=== PATIENT | female | born 1950 | race Caucasian/White ===

== ENCOUNTER → 2017-01-27 | Outpatient (CLI) | payer BC, MEDICARE ==
--- NOTE | 2017-01-28 08:26 | MM ---
Reason for exam: screening (asymptomatic). Last mammogram was performed 10 years and 5 months ago. History: Patient is postmenopausal and is nulliparous. Taking estrogen for 3 years 2 months. Taking progesterone for 3 years 2 months. Physical Findings: A clinical breast exam by your physician is recommended on an annual basis and results should be correlated with mammographic findings. MG Screening Mammo w CAD Bilateral CC and MLO view(s) were taken. Prior study comparison: August 22, 2006, workup left diagnostic mammogram. August 15, 2006, bilateral screening mammogram w/CAD. There are scattered fibroglandular densities. Asymmetric breast tissue in the left breast x 2. ASSESSMENT: Incomplete: need additional imaging evaluation, BI-RAD 0 RECOMMENDATION: Special view mammogram of the left breast. If lesion persists on supplemental views, image directed ultrasound is recommended. [facility] will attempt to contact patient to return for supplemental views and ultrasound if indicated.
== END | disposition home or self-care (01) ==
LOC: RADMAMWWP 09:18
PROVIDERS: ATTEND Obstetrics & Gynecology
DX: Z12.31 Encounter for screening mammogram for malignant neoplasm of breast (principal); R92.2 Inconclusive mammogram

== ENCOUNTER → 2017-02-05 | Outpatient (CLI) | payer BC, MEDICARE ==
--- NOTE | 2017-02-06 08:10 | MM ---
Reason for exam: additional evaluation requested from abnormal screening. Last mammogram was performed less than 1 month ago. History: Patient is postmenopausal, has history of endometrial cancer at age 57, and is nulliparous. Taking estrogen for 3 years 2 months. Taking progesterone for 3 years 2 months. Physical Findings: Nurse did not find any significant physical abnormalities on exam. MG 3D Work Up W/Cad LT Spot compression CC, spot compression MLO, and ML view(s) were taken of the left breast. Prior study comparison: January 27, 2017, bilateral MG screening mammo w CAD. August 22, 2006, workup left diagnostic mammogram. There are scattered fibroglandular densities. Previous mammotome biopsy in the left breast. There is no discrete abnormality. No significant new findings when compared with previous films. These results were verbally communicated with the patient and result sheet given to the patient on 02/05/17. ASSESSMENT: Benign, BI-RAD 2 RECOMMENDATION: Return to routine screening mammogram schedule for both breasts.
== END | disposition home or self-care (01) ==
LOC: RADMAMWWP 14:42
PROVIDERS: ATTEND Obstetrics & Gynecology
DX: R92.8 Other abnormal and inconclusive findings on diagnostic imaging of breast (principal)
CPT/HCPCS: G0206; G0279

== ENCOUNTER 2019-09-29 11:47 | Inpatient (IN) | payer MEDICARE, BC ==
[2019-09-29] MEDS ORDERED: SODIUM CHLORIDE 0.9% 1,000 ML IV STA (12:28)
[2019-09-29] MEDS ORDERED: KETOROLAC 30 MG/ML 1 ML VIAL IVP STA (12:28)
[2019-09-29] MEDS ORDERED: PANTOPRAZOLE 40 MG/10 ML VIAL IVP STA (12:28)
[2019-09-29] MEDS ORDERED: ONDANSETRON 4 MG/2 ML VIAL IVP STA (12:28)
[2019-09-29] MEDS ORDERED: SODIUM CHLORIDE 0.9% 2,000 ML IV STA (12:28)
--- NOTE | 2019-09-29 12:32 | ED ---
Abdominal Pain HPI - General Chief Complaint: Abdominal Pain Stated Complaint: abd pain, vomiting Time Seen by Provider: 09/29/19 12:13 Source: patient, RN notes reviewed, old records reviewed Mode of arrival: wheelchair Limitations: physical limitation - History of Present Illness Initial Comments: Patient is a 69-year-old female who presents emergency Department today with complaints of abdominal pain nausea and vomiting for the past 3-4 days. She's been feeling generally weak. She has history of CVA, loss of partial left-sided eye sight and left-sided weakness due to the CVA in July. Patient reports that she returned home due to feeling weak and having this abdominal pain and vomiting from her trip to [place]. She returned home last night. Patient states that she has had abdominal pain with eating for the past few weeks. She states that she's had a low-grade fever last week as well as had a headache last week. She denies any acute neurological deficits or tingling sensation in her arms or legs. She does have some chronic left-sided paresthesias. - Related Data Allergies Allergy/AdvReac Type Severity Reaction Status Date / Time No Known Allergies Allergy Verified 09/29/19 12:07 Review of Systems ROS Statement: Those systems with pertinent positive or pertinent negative responses have been documented in the HPI. ROS Other: All systems not noted in ROS Statement are negative. Past Medical History Past Medical History: Cancer, CVA/TIA, Hyperlipidemia, Hypertension Additional Past Medical History / Comment(s): hearing loss History of Any Multi-Drug Resistant Organisms: None Reported Past Surgical History: Ear Surgery, Hysterectomy Past Psychological History: No Psychological Hx Reported Smoking Status: Never smoker Past Alcohol Use History: None Reported Past Drug Use History: None Reported General Exam - General Exam Comments Initial Comments: Patient is a 69-year-old female. Alert and oriented 3. Patient appears in no significant distress. Limitations: physical limitation General appearance: alert, in no apparent distress Head exam: Present: atraumatic, normocephalic, normal inspection Eye exam: Present: normal appearance, PERRL, EOMI, other (Patient has left-sided visual loss from history of CVA.). Absent: scleral icterus, conjunctival injection, periorbital swelling ENT exam: Present: normal exam, mucous membranes moist Neck exam: Present: normal inspection Respiratory exam: Present: normal lung sounds bilaterally. Absent: respiratory distress, wheezes, rales, rhonchi, stridor Cardiovascular Exam: Present: regular rate, normal rhythm, normal heart sounds. Absent: systolic murmur, diastolic murmur, rubs, gallop, clicks GI/Abdominal exam: Present: soft, tenderness (Minimal epigastric tenderness.), normal bowel sounds. Absent: distended, guarding, rebound, rigid Extremities exam: Present: normal inspection, full ROM, normal capillary refill. Absent: tenderness, pedal edema, joint swelling, calf tenderness Back exam: Present: normal inspection Neurological exam: Present: alert, oriented X3, CN II-XII intact Psychiatric exam: Present: normal affect, normal mood Skin exam: Present: warm, dry, intact, normal color. Absent: rash Course Vital Signs 09/29/19 09/29/19 12:01 13:36 Temperature 97.7 F Pulse Rate 89 78 Respiratory 18 18 Rate Blood Pressure 97/58 108/67 O2 Sat by Pulse 96 96 Oximetry Medical Decision Making - Medical Decision Making 69-year-old female presented today for evaluation for nausea vomiting abdominal pain. She does have a history of CVAs in the past resulting in left-sided visu al loss. She is also hard of hearing. Patient's did pull me aside and states that she typically minimizes her symptoms and avoids going to the [facility]. Patient was given IV fluids and labs obtained. She does have evidence of transaminitis. CT abdomen and pelvis was completed. CT shows evidence of acute cholecystitis with gallbladder hydrops. Patient was started on IV Zosyn. Blood cultures were completed. Discussed the case with Dr. Jay Mcdermott discussed the case with Dr. Correia. - Lab Data Result diagrams: 09/29/19 12:47 09/29/19 12:47 Lab Results 09/29/19 09/29/19 09/29/19 Range/Units 12:47 12:47 12:47 WBC 10.1 (3.8-10.6) k/uL RBC 3.97 (3.80-5.40) m/uL Hgb 12.5 (11.4-16.0) gm/dL Hct 36.4 (34.0-46.0) % MCV 91.5 (80.0-100.0) fL MCH 31.4 (25.0-35.0) pg MCHC 34.3 (31.0-37.0) g/dL RDW 11.4 L (11.5-15.5) % Plt Count 316 (150-450) k/uL Neutrophils % 81 % Lymphocytes % 8 % Monocytes % 6 % Eosinophils % 3 % Basophils % 0 % Neutrophils # 8.2 H (1.3-7.7) k/uL Lymphocytes # 0.8 L (1.0-4.8) k/uL Monocytes # 0.6 (0-1.0) k/uL Eosinophils # 0.3 (0-0.7) k/uL Basophils # 0.0 (0-0.2) k/uL PT (9.0-12.0) sec INR (<1.2) APTT (22.0-30.0) sec Sodium 136 L (137-145) mmol/L Potassium 4.1 (3.5-5.1) mmol/L Chloride 100 (98-107) mmol/L Carbon Dioxide 27 (22-30) mmol/L Anion Gap 9 mmol/L BUN 24 H (7-17) mg/dL Creatinine 0.66 (0.52-1.04) mg/dL Est GFR (CKD-EPI)AfAm >90 (>60 ml/min/1.73 sqM) Est GFR (CKD-EPI)NonAf 90 (>60 ml/min/1.73 sqM) Glucose 108 H (74-99) mg/dL Plasma Lactic Acid Randy 0.8 (0.7-2.0) mmol/L Calcium 8.9 (8.4-10.2) mg/dL Total Bilirubin 0.8 (0.2-1.3) mg/dL AST 348 H (14-36) U/L ALT 333 H (4-34) U/L Alkaline Phosphatase 124 (38-126) U/L Troponin I (0.000-0.034) ng/mL Total Protein 5.7 L (6.3-8.2) g/dL Albumin 3.3 L (3.5-5.0) g/dL Amylase <30 L (30-110) U/L Lipase 120 (23-300) U/L Urine Color Urine Appearance (Clear) Urine pH (5.0-8.0) Ur Specific [place] (1.001-1.035) Urine Protein (Negative) Urine Glucose (UA) (Negative) Urine Ketones (Negative) Urine Blood (Negative) Urine Nitrite (Negative) Urine Bilirubin (Negative) Urine Urobilinogen (<2.0) mg/dL Ur Leukocyte Esterase (Negative) Urine RBC (0-5) /hpf Urine WBC (0-5) /hpf Ur Squamous Epith Cells (0-4) /hpf Hyaline Casts (0-2) /lpf Urine Mucus (None) /hpf Influenza Type A RNA (Not Detectd) Influenza Type B (PCR) (Not Detectd) 09/29/19 09/29/19 09/29/19 Range/Units 12:47 12:47 13:00 WBC (3.8-10.6) k/uL RBC (3.80-5.40) m/uL Hgb (11.4-16.0) gm/dL Hct (34.0-46.0) % MCV (80.0-100.0) fL MCH (25.0-35.0) pg MCHC (31.0-37.0) g/dL RDW (11.5-15.5) % Plt Count (150-450) k/uL Neutrophils % % Lymphocytes % % Monocytes % % Eosinophils % % Basophils % % Neutrophils # (1.3-7.7) k/uL Lymphocytes # (1.0-4.8) k/uL Monocytes # (0-1.0) k/uL Eosinophils # (0-0.7) k/uL Basophils # (0-0.2) k/uL PT 9.5 (9.0-12.0) sec INR 0.9 (<1.2) APTT 22.5 (22.0-30.0) sec Sodium (137-145) mmol/L Potassium (3.5-5.1) mmol/L Chloride (98-107) mmol/L Carbon Dioxide (22-30) mmol/L Anion Gap mmol/L BUN (7-17) mg/dL Creatinine (0.52-1.04) mg/dL Est GFR (CKD-EPI)AfAm (>60 ml/min/1.73 sqM) Est GFR (CKD-EPI)NonAf (>60 ml/min/1.73 sqM) Glucose (74-99) mg/dL Plasma Lactic Acid Randy (0.7-2.0) mmol/L Calcium (8.4-10.2) mg/dL Total Bilirubin (0.2-1.3) mg/dL AST (14-36) U/L ALT (4-34) U/L Alkaline Phosphatase (38-126) U/L Troponin I <0.012 (0.000-0.034) ng/mL Total Protein (6.3-8.2) g/dL Albumin (3.5-5.0) g/dL Amylase (30-110) U/L Lipase (23-300) U/L Urine Color Urine Appearance (Clear) Urine pH (5.0-8.0) Ur Specific [place] (1.001-1.035) Urine Protein (Negative) Urine Glucose (UA) (Negative) Urine Ketones (Negative) Urine Blood (Negative) Urine Nitrite (Negative) Urine Bilirubin (Negative) Urine Urobilinogen (<2.0) mg/dL Ur Leukocyte Esterase (Negative) Urine RBC (0-5) /hpf Urine WBC (0-5) /hpf Ur Squamous Epith Cells (0-4) /hpf Hyaline Casts (0-2) /lpf Urine Mucus (None) /hpf Influenza Type A RNA Not Detected (Not Detectd) Influenza Type B (PCR) Not Detected (Not Detectd) 09/29/19 Range/Units 13:15 WBC (3.8-10.6) k/uL RBC (3.80-5.40) m/uL Hgb (11.4-16.0) gm/dL Hct (34.0-46.0) % MCV (80.0-100.0) fL MCH (25.0-35.0) pg MCHC (31.0-37.0) g/dL RDW (11.5-15.5) % Plt Count (150-450) k/uL Neutrophils % % Lymphocytes % % Monocytes % % Eosinophils % % Basophils % % Neutrophils # (1.3-7.7) k/uL Lymphocytes # (1.0-4.8) k/uL Monocytes # (0-1.0) k/uL Eosinophils # (0-0.7) k/uL Basophils # (0-0.2) k/uL PT (9.0-12.0) sec INR (<1.2) APTT (22.0-30.0) sec Sodium (137-145) mmol/L Potassium (3.5-5.1) mmol/L Chloride (98-107) mmol/L Carbon Dioxide (22-30) mmol/L Anion Gap mmol/L BUN (7-17) mg/dL Creatinine (0.52-1.04) mg/dL Est GFR (CKD-EPI)AfAm (>60 ml/min/1.73 sqM) Est GFR (CKD-EPI)NonAf (>60 ml/min/1.73 sqM) Glucose (74-99) mg/dL Plasma Lactic Acid Randy (0.7-2.0) mmol/L Calcium (8.4-10.2) mg/dL Total Bilirubin (0.2-1.3) mg/dL AST (14-36) U/L ALT (4-34) U/L Alkaline Phosphatase (38-126) U/L Troponin I (0.000-0.034) ng/mL Total Protein (6.3-8.2) g/dL Albumin (3.5-5.0) g/dL Amylase (30-110) U/L Lipase (23-300) U/L Urine Color Alissa Urine Appearance Slightly Cloudy H (Clear) Urine pH 6.0 (5.0-8.0) Ur Specific [place] 1.020 (1.001-1.035) Urine Protein 1+ H (Negative) Urine Glucose (UA) Negative (Negative) Urine Ketones Negative (Negative) Urine Blood Negative (Negative) Urine Nitrite Negative (Negative) Urine Bilirubin Negative (Negative) Urine Urobilinogen 4.0 (<2.0) mg/dL Ur Leukocyte Esterase Negative (Negative) Urine RBC 3 (0-5) /hpf Urine WBC 2 (0-5) /hpf Ur Squamous Epith Cells <1 (0-4) /hpf Hyaline Casts 4 H (0-2) /lpf Urine Mucus Many H (None) /hpf Influenza Type A RNA (Not Detectd) Influenza Type B (PCR) (Not Detectd) 09/29/19 14:20 EKG shows normal sinus rhythm and normal EKG. Ventricular rate of 70 beats were minute. A 42 ms. Frustration is 80 ms. QT QTc is 360/410 ms. - Radiology Data Radiology results: report reviewed CT findings compatible with acute cholecystitis. Moderate surrounding inflammation marked gallbladder hydrops. Associated mild perihepatitis. Some secondary reactive edema to the right mesenteric fat. 4 mm nonobstructive right lower pole renal calculus. Sigmoid diverticulosis without diverticulitis. Disposition Clinical Impression: Acute cholecystitis, Nausea & vomiting, History of CVA (cerebrovascular accident) Disposition: ADMITTED IP TO THIS HOSP Condition: Good Is patient prescribed a controlled substance at d/c from ED?: No Referrals: Ej Joy MD [Primary Care Provider] - 1-2 days Time of Disposition: 15:22
--- NOTE | 2019-09-29 13:11 | XR ---
EXAMINATION TYPE: XR chest 2V DATE OF EXAM: 09/29/2019 COMPARISON: 10/24/2009 HISTORY: 69-year-old female with abdominal pain TECHNIQUE: PA and lateral views FINDINGS: The cardiomediastinal silhouette, aorta, and pulmonary vasculature are within normal limits. Lungs an d pleural spaces are clear. Loop recorder device projects over the left heart margin. IMPRESSION: No acute cardiopulmonary process.
[2019-09-29 13:12] LABS: Basophils % (A) 0 %; Eosinophils # (A) 0.3 k/uL (0-0.7); Eosinophils % (A) 3 %; HCT 36.4 % (34.0-46.0); HGB 12.5 gm/dL (11.4-16.0); Lymphocytes # (A) 0.8 k/uL (1.0-4.8); Lymphocytes % (A) 8 %; MCH 31.4 pg (25.0-35.0); MCHC 34.3 g/dL (31.0-37.0); MCV 91.5 fL (80.0-100.0); Monocytes # (A) 0.6 k/uL (0-1.0); Monocytes % (A) 6 %; Neutrophils # (A) 8.2 k/uL (1.3-7.7); Neutrophils % (A) 81 %; Platelet Count 316 k/uL (150-450); RBC 3.97 m/uL (3.80-5.40); RDW 11.4 % (11.5-15.5); WBC 10.1 k/uL (3.8-10.6)
--- NOTE | 2019-09-29 13:13 | XR ---
EXAMINATION TYPE: XR KUB DATE OF EXAM: 09/29/2019 CLINICAL DATA: 69 year-old female with abdominal pain, nausea/vomiting, PHH COMPARISON: 10/16/2009 FINDINGS: Dextro convex scoliosis of the lumbar spine. No evidence for free intraperitoneal air. No dilated small bowel or air-fluid levels. Scattered air within the colon with mild. No suspicious calcifications seen. IMPRESSION: Mild stool. No evidence for free air or bowel obstruction.
[2019-09-29 13:17] LABS: INR 0.9 (<1.2); Partial Thromboplastin Time 22.5 sec (22.0-30.0); Prothrombin Time 9.5 sec (9.0-12.0)
[2019-09-29 13:26] LABS: ALT 333 U/L (4-34); AST 348 U/L (14-36); African American GFR (CKD) >90 (>60 ml/min/1.73 sqM); Albumin 3.3 g/dL (3.5-5.0); Alkaline Phosphatase 124 U/L (38-126); Amylase <30 U/L (30-110); Anion Gap 9 mmol/L; Blood Urea Nitrogen 24 mg/dL (7-17); Calcium 8.9 mg/dL (8.4-10.2); Carbon Dioxide 27 mmol/L (22-30); Chloride 100 mmol/L (98-107); Glucose 108 mg/dL (74-99); Non-African American GFR(CKD) 90 (>60 ml/min/1.73 sqM); Sodium 136 mmol/L (137-145); Total Bilirubin 0.8 mg/dL (0.2-1.3); Total Protein 5.7 g/dL (6.3-8.2)
[2019-09-29 13:27] LABS: Potassium 4.1 mmol/L (3.5-5.1)
[2019-09-29 14:01] LABS: Hyaline Casts,Urine 4 /lpf (0-2); Mucus,Urine Many /hpf; RBC,Urine 3 /hpf (0-5); Squamous Epithelial Cell,Urine <1 /hpf (0-4); WBC,Urine 2 /hpf (0-5)
[2019-09-29 14:03] LABS: Appearance,Urine Slightly Cloudy (Clear); Color,Urine Amber; Glucose,Urine (UA) Negative (Negative); Protein,Urine 1+ (Negative)
[2019-09-29 14:04] LABS: Bilirubin,Urine Negative (Negative); Blood,Urine Negative (Negative); Ketones,Urine Negative (Negative); Leukocyte Esterase,Urine Negative (Negative); Nitrite,Urine Negative (Negative)
--- NOTE | 2019-09-29 14:56 | CT ---
EXAMINATION TYPE: CT abdomen pelvis w con DATE OF EXAM: 09/29/2019 COMPARISON: 10/24/2009 HISTORY: 69-year-old female generalized pain, nausea, vomiting TECHNIQUE: Contiguous axial scanning of the abdomen and pelvis following administration of 100 ml Iso tim 300 IV contrast. Delayed images through the kidneys and coronal/sagittal reconstructions perform ed. CT DLP: 792 mGycm Automated exposure control for dose reduction was used. FINDINGS: LUNG BASES: Prominent dependent atelectasis. Heart upper limits of normal in size with trace anterior pericardial fluid. LIVER/GB: No focal lesion of the liver. Portal venous system is patent. No biliary ductal dilatation. Some mild hyperemia along the gallbladder fossa. Abnormal gallbladder hydrops measuring up to 5.2 cm wide with moderate to severe edematous wall thickening and surrounding inflammatory fat stranding an d edema. PANCREAS: No significant abnormality is seen. SPLEEN: No significant abnormality is seen. ADRENALS: No significant abnormality is seen. KIDNEYS: Nonobstructive 4 mm right lower pole renal calculus. Otherwise, no significant abnormality i s seen. LYMPH NODES: Scattered nonenlarged mesenteric lymph nodes throughout. No retroperitoneal lymphadenopa thy. REPRODUCTIVE ORGANS: Bladder is collapsed. Uterus surgically absent. Neither ovary is visualized. No abnormal fluid collection the pelvis or pelvic lymphadenopathy. BOWEL: No dilated small bowel. Mild edematous change throughout the right abdominal mesentery. No fr ee air. Sigmoid diverticulosis with mild stool burden. No pericolonic inflammatory change. BONES: Degenerative changes at the hips. Facet arthropathy lower lumbar spine. IMPRESSION: 1. CT FINDINGS COMPATIBLE WITH ACUTE CHOLECYSTITIS. MODERATE SURROUNDING INFLAMMATION AND MARKED GALL BLADDER HYDROPS. ASSOCIATED MILD PERIHEPATITIS. 2. SOME SECONDARY REACTIVE EDEMA THROUGHOUT THE RIGHT ABDOMINAL MESENTERIC FAT. NO ABSCESS FORMATION. 3. 4 MM NONOBSTRUCTIVE RIGHT LOWER POLE RENAL CALCULUS. 4. SIGMOID DIVERTICULOSIS WITHOUT ACUTE DIVERTICULITIS.
[2019-09-29] MEDS ORDERED: PIPERACILLIN-TAZOBACTAM 3.375 GM in SODIUM CHLORIDE 0.9% 100 ML IVPB STA (15:02)
[2019-09-29] MEDS ORDERED: NALOXONE 0.4 MG/ML 1 ML VIAL IV PRN ×2 (15:19→15:22)
[2019-09-29] MEDS ORDERED: ACETAMINOPHEN TAB 325 MG TAB PO PRN (15:19)
[2019-09-29] MEDS ORDERED: ONDANSETRON 4 MG/2 ML VIAL IVP PRN (15:22)
[2019-09-29] MEDS ORDERED: KETOROLAC 30 MG/ML 1 ML VIAL IVP PRN (15:22)
[2019-09-29] MEDS ORDERED: SODIUM CHLORIDE 0.9% 1,000 ML IV SCH (15:30)
[2019-09-29] MEDS: SODIUM CHLORIDE 0.9% 1,000 ML IV SCH (15:58)
--- NOTE | 2019-09-29 17:56 | P.CONS ---
History of Present Illness - History of Present Illness 69-year-old pleasant female came in to ER with complaint of abdominal pain na usea vomiting has been going on for last 3-4 days the symptoms resolved today. Patient although seems to downplay her symptoms has been was present at the bedside and patient apparently was having severe abdominal pain she points to lower abdominal quadrants. Patient has been throwing up and from her trip to [place] and she was still throwing up yesterday and was having severe abdominal pain patient's family and patient came to [place] yesterday. Patient had a CAT scan of the abdomen initially EKG showing enlarged gallbladder with gallbladder wall thickening and probable hydrops of the gallbladder. Patient denied any fevers patient has on and off diarrhea which is not uncommon for her at this time she doesn't have the diarrhea denies any dysuria fever chills. Patient is not sure whether she had fever during her trip to [place]. Review of Systems REVIEW OF SYSTEMS: CONSTITUTIONAL: No fever, no malaise, no fatigue. HEENT: No recent visual problems or hearing problems. Denied any sore throat. CARDIOVASCULAR: No chest pain, orthopnea, PND, no palpitations, no syncope. PULMONARY: No shortness of breath, no cough, no hemoptysis. GASTROINTESTINAL: As mentioned in HPI NEUROLOGICAL: No headaches, no weakness, no numbness. HEMATOLOGICAL: Denies any bleeding or petechiae. GENITOURINARY: Denies any burning micturition, frequency, or urgency. MUSCULOSKELETAL/RHEUMATOLOGICAL: Denies any joint pain, swelling, or any muscle pain. ENDOCRINE: Denies any polyuria or polydipsia. The rest of the 14-point review of systems is negative. Past Medical History Past Medical History: Cancer, CVA/TIA, Hyperlipidemia, Hypertension Additional Past Medical History / Comment(s): hearing loss History of Any Multi-Drug Resistant Organisms: None Reported Past Surgical History: Ear Surgery, Hysterectomy Past Psychological History: No Psychological Hx Reported Smoking Status: Never smoker Past Alcohol Use History: None Reported Past Drug Use History: None Reported Medications and Allergies Home Medications Medication Instructions Recorded Confirmed Type Aspirin EC [Ecotrin] 325 mg PO DAILY 09/29/19 09/29/19 History Atorvastatin [Lipitor] 80 mg PO DAILY 09/29/19 09/29/19 History Latanoprost/Pf [Latanoprost 0.005% 1 drop BOTH EYES HS 09/29/19 09/29/19 History Eye Drop] Timolol 0.5% Ophth Soln [Timoptic 1 drop BOTH EYES BID 09/29/19 09/29/19 History 0.5% Ophth Soln] Vitamin D3(Unknown Dose) 1 tab PO DAILY 09/29/19 09/29/19 History amLODIPine [Norvasc] 5 mg PO DAILY 09/29/19 09/29/19 History Allergies Allergy/AdvReac Type Severity Reaction Status Date / Time No Known Allergies Allergy Verified 09/29/19 16:08 Physical Exam Vitals: Vital Signs Temp Pulse Resp BP Pulse Ox 09/29/19 16:54 98.5 F 63 18 107/71 94 L 09/29/19 13:36 78 18 108/67 96 09/29/19 12:01 97.7 F 89 18 97/58 96 Intake and Output 09/29/19 09/29/19 09/29/19 06:59 14:59 22:59 Other: Weight 63.503 kg PHYSICAL EXAMINATION: GENERAL: The patient is alert and oriented x3, not in any acute distress. Well developed, well nourished. HEENT: Pupils are round and equally reacting to light. EOMI. No scleral icterus. No conjunctival pallor. Normocephalic, atraumatic. No pharyngeal erythema. No thyromegaly. CARDIOVASCULAR: S1 and S2 present. No murmurs, rubs, or gallops. PULMONARY: Chest is clear to auscultation, no wheezing or crackles. ABDOMEN: Soft, nontender, nondistended, normoactive bowel sounds. No palpable organomegaly. MUSCULOSKELETAL: No joint swelling or deformity. EXTREMITIES: No cyanosis, clubbing, or pedal edema. NEUROLOGICAL: Gross neurological examination did not reveal any focal deficits. SKIN: No rashes. Results CBC & Chem 7: 09/29/19 12:47 09/29/19 12:47 Labs: Abnormal Lab Results - Last 24 Hours (Table) 09/29/19 09/29/19 09/29/19 Range/Units 12:47 12:47 13:15 RDW 11.4 L (11.5-15.5) % Neutrophils # 8.2 H (1.3-7.7) k/uL Lymphocytes # 0.8 L (1.0-4.8) k/uL Sodium 136 L (137-145) mmol/L BUN 24 H (7-17) mg/dL Glucose 108 H (74-99) mg/dL AST 348 H (14-36) U/L ALT 333 H (4-34) U/L Total Protein 5.7 L (6.3-8.2) g/dL Albumin 3.3 L (3.5-5.0) g/dL Amylase <30 L (30-110) U/L Urine Appearance Slightly Cloudy H (Clear) Urine Protein 1+ H (Negative) Hyaline Casts 4 H (0-2) /lpf Urine Mucus Many H (None) /hpf Assessment and Plan Plan: Possible cholecystitis: General surgery will evaluate the patient patient will Zosyn which will be continued patient is receiving IV fluids at this time she'll be continued -Elevated liver enzymes etiology can be cholelithiasis or gallbladder disease although cannot completely rule out statin-induced elevation of liver enzymes for now will hold off on statin. -History of CVA multiple in the past because of which patient is on aspirin whic h is being held for with anticipation of surgery tomorrow and statin because of elevated liver enzymes -Hearing impairment chronic with cochlear implants in the past -Hypertension hold off and differences with concerns of impending sepsis from cholelithiasis or cholecystitis -Hyperlipidemia
--- NOTE | 2019-09-29 22:52 | P.GSHP ---
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 She was in [place] visiting them return to [place]. She was brought to the emergency room given the duration of her symptoms. No reports of severe abdominal pain. No jaundice. No dark-colored stools. Lower appetite confirmed. CT of the abdomen and pelvis obtained demonstrates findings consistent with acute cholecystitis. Given results of findings, patient is admitted. PAST MEDICAL HISTORY: Please see list PAST SURGICAL HISTORY: Please see list MEDICATIONS: Please see list ALLERGIES: Please see list SOCIAL HISTORY: Please see list FAMILY HISTORY: Please see list REVIEW OF ORGAN SYSTEMS: CONSTITUTIONAL: No reports of fevers or chills. HEENT: Has blindness. Also has deafness with cochlear implant ENDOCRINE: No reports of hypothyroidism. No diabetes. RESPIRATORY: No recent pneumonias. CARDIOVASCULAR: Denies chest pain or palpitations GI: No blood in stools or constipation. MUSCULOSKELETAL: Has occasional joint pain including back pain. NEURO: No seizure disorders or headaches. No recent stroke. PSYCH: No depression or suicidal ideation. GENITOURINARY: No active blood in urine. No urinary hesitancy. HEMATOLOGIC: No personal or family history of DVTs or pulmonary emboli. SKIN: No skin cancer. PHYSICAL EXAM: VITAL SIGNS: Afebrile vital signs stable GENERAL: Well-developed pleasant in no acute distress. HEENT: No scleral icterus. Extraocular movements grossly intact. Moist buccal mucosa. NECK: Supple without lymphadenopathy. CHEST: Unlabored respirations. Equal bilateral excursions. CARDIOVASCULAR: Regular rate regular rhythm rhythm. Distal 2+ pulses. ABDOMEN: Soft, nondistended. Tender along the epigastrium and right upper quadrant. MUSCULOSKELETAL: No clubbing, cyanosis, or edema. NEURO: Cranial nerves II to XII within normal limits. No focal or lateralizing signs. PSYCH: Alert and oriented to person, place and time. SKIN: Well-perfused good skin turgor. STUDIES: CT of the abdomen and pelvis reviewed in detail and reviewed with the patient demonstrating an large gallbladder with thickened gallbladder wall identified without perforation. Dense inflammatory changes noted. ASSESSMENT: 1. Acute cholecystitis with hydrops gallbladder moderately distended consistent with hydrops 2. Elevated liver enzymes PLAN: 1. Will need a robotic cholecystectomy possible open. Benefits and risks were described. 2. Heparin for DVT prophylaxis 5000 units. 3. Antibiotic prophylaxis. 4. Recommend inpatient admission for acute cholecystitis with hydrops Past Medical History Past Medical History: Cancer, CVA/TIA, Hyperlipidemia, Hypertension Additional Past Medical History / Comment(s): hearing loss History of Any Multi-Drug Resistant Organisms: None Reported Past Surgical History: Ear Surgery, Hysterectomy Past Psychological History: No Psychological Hx Reported Smoking Status: Never smoker Past Alcohol Use History: None Reported Past Drug Use History: None Reported - Past Family History Mother Family Medical History: Cancer Additional Family Medical History / Comment(s): lung ca Medications and Allergies Home Medications Medication Instructions Recorded Confirmed Type Aspirin EC [Ecotrin] 325 mg PO DAILY 09/29/19 09/29/19 History Atorvastatin [Lipitor] 80 mg PO DAILY 09/29/19 09/29/19 History Latanoprost/Pf [Latanoprost 0.005% 1 drop BOTH EYES HS 09/29/19 09/29/19 History Eye Drop] Timolol 0.5% Ophth Soln [Timoptic 1 drop BOTH EYES BID 09/29/19 09/29/19 History 0.5% Ophth Soln] Vitamin D3(Unknown Dose) 1 tab PO DAILY 09/29/19 09/29/19 History amLODIPine [Norvasc] 5 mg PO DAILY 09/29/19 09/29/19 History Allergies Allergy/AdvReac Type Severity Reaction Status Date / Time No Known Allergies Allergy Verified 09/29/19 16:08 Surgical - Exam Vital Signs Temp Pulse Resp BP Pulse Ox 97.7 F 89 18 97/58 96 09/29/19 12:01 09/29/19 12:01 09/29/19 12:01 09/29/19 12:01 09/29/19 12:01 Results - Labs 09/29/19 12:47 09/29/19 12:47 Abnormal Lab Results - Last 24 Hours (Table) 09/29/19 09/29/19 09/29/19 Range/Units 12:47 12:47 13:15 RDW 11.4 L (11.5-15.5) % Neutrophils # 8.2 H (1.3-7.7) k/uL Lymphocytes # 0.8 L (1.0-4.8) k/uL Sodium 136 L (137-145) mmol/L BUN 24 H (7-17) mg/dL Glucose 108 H (74-99) mg/dL AST 348 H (14-36) U/L ALT 333 H (4-34) U/L Total Protein 5.7 L (6.3-8.2) g/dL Albumin 3.3 L (3.5-5.0) g/dL Amylase <30 L (30-110) U/L Urine Appearance Slightly Cloudy H (Clear) Urine Protein 1+ H (Negative) Hyaline Casts 4 H (0-2) /lpf Urine Mucus Many H (None) /hpf Diabetes panel 09/29/19 Range/Units 12:47 Sodium 136 L (137-145) mmol/L Potassium 4.1 (3.5-5.1) mmol/L Chloride 100 (98-107) mmol/L Carbon Dioxide 27 (22-30) mmol/L BUN 24 H (7-17) mg/dL Creatinine 0.66 (0.52-1.04) mg/dL Glucose 108 H (74-99) mg/dL Calcium 8.9 (8.4-10.2) mg/dL AST 348 H (14-36) U/L ALT 333 H (4-34) U/L Alkaline Phosphatase 124 (38-126) U/L Total Protein 5.7 L (6.3-8.2) g/dL Albumin 3.3 L (3.5-5.0) g/dL Calcium panel 09/29/19 Range/Units 12:47 Calcium 8.9 (8.4-10.2) mg/dL Albumin 3.3 L (3.5-5.0) g/dL Pituitary panel 09/29/19 Range/Units 12:47 Sodium 136 L (137-145) mmol/L Potassium 4.1 (3.5-5.1) mmol/L Chloride 100 (98-107) mmol/L Carbon Dioxide 27 (22-30) mmol/L BUN 24 H (7-17) mg/dL Creatinine 0.66 (0.52-1.04) mg/dL Glucose 108 H (74-99) mg/dL Calcium 8.9 (8.4-10.2) mg/dL Adrenal panel 02/19/20 Range/Units 12:47 Sodium 136 L (137-145) mmol/L Potassium 4.1 (3.5-5.1) mmol/L Chloride 100 (98-107) mmol/L Carbon Dioxide 27 (22-30) mmol/L BUN 24 H (7-17) mg/dL Creatinine 0.66 (0.52-1.04) mg/dL Glucose 108 H (74-99) mg/dL Calcium 8.9 (8.4-10.2) mg/dL Total Bilirubin 0.8 (0.2-1.3) mg/dL AST 348 H (14-36) U/L ALT 333 H (4-34) U/L Alkaline Phosphatase 124 (38-126) U/L Total Protein 5.7 L (6.3-8.2) g/dL Albumin 3.3 L (3.5-5.0) g/dL Assessment and Plan (1) Elevated transaminase level Current Visit: Yes Status: Acute Code(s): R74.0 - NONSPEC ELEV OF LEVELS OF TRANSAMNS & LACTIC ACID DEHYDRGNSE SNOMED Code(s): 494996703 (2) Deafness Current Visit: Yes Status: Acute Code(s): H91.90 - UNSPECIFIED HEARING LOSS, UNSPECIFIED EAR SNOMED Code(s): 32756115 (3) Cochlear implant in place Current Visit: Yes Status: Acute Code(s): Z96.21 - COCHLEAR IMPLANT STATUS SNOMED Code(s): 325573491 (4) Blindness Current Visit: Yes Status: Acute Code(s): H54.7 - UNSPECIFIED VISUAL LOSS SNOMED Code(s): 298263613 (5) Hypertension Current Visit: Yes Status: Acute Code(s): I10 - ESSENTIAL (PRIMARY) HYPERTENSION SNOMED Code(s): 67472725 (6) Hyperlipidemia Current Visit: Yes Status: Acute Code(s): E78.5 - HYPERLIPIDEMIA, UNSPECIFIED SNOMED Code(s): 04626684 (7) Acute cholecystitis Current Visit: Yes Status: Acute Code(s): K81.0 - ACUTE CHOLECYSTITIS SNOMED Code(s): 41708147 (8) History of CVA (cerebrovascular accident) Current Visit: Yes Status: Acute Code(s): Z86.73 - PRSNL HX OF TIA (TIA), AND CEREB INFRC W/O RESID DEFICITS SNOMED Code(s): 170523680 (9) Nausea & vomiting Current Visit: Yes Status: Acute Code(s): R11.2 - NAUSEA WITH VOMITING, UNSPECIFIED SNOMED Code(s): 88868223
[2019-09-29] MEDS: LATANOPROST 0.005% OPHTH DROPS 2.5 ML BTL BOTH EYES SCH (22:59)
[2019-09-29] MEDS: TIMOLOL 0.5% OPHTH DROPS 5 ML BTL BOTH EYES SCH (22:59)
[2019-09-30] MEDS: PIPERACILLIN-TAZOBACTAM 3.375 GM in SODIUM CHLORIDE 0.9% 100 ML IVPB SCH ×3 (01:11→22:58)
[2019-09-30] MEDS: PANTOPRAZOLE 40 MG/10 ML VIAL IV SCH (08:28)
[2019-09-30] MEDS: TIMOLOL 0.5% OPHTH DROPS 5 ML BTL BOTH EYES SCH ×2 (08:29→23:24)
[2019-09-30 08:45] LABS: Basophils # (A) 0.1 k/uL (0-0.2); Basophils % (A) 1 %; Eosinophils # (A) 0.5 k/uL (0-0.7); Eosinophils % (A) 7 %; HCT 34.2 % (34.0-46.0); HGB 11.8 gm/dL (11.4-16.0); Lymphocytes # (A) 0.7 k/uL (1.0-4.8); Lymphocytes % (A) 8 %; MCH 31.8 pg (25.0-35.0); MCHC 34.4 g/dL (31.0-37.0); MCV 92.2 fL (80.0-100.0); Mean Platelet Volume 7.3; Monocytes # (A) 0.5 k/uL (0-1.0); Monocytes % (A) 7 %; Neutrophils # (A) 6.3 k/uL (1.3-7.7); Neutrophils % (A) 77 %; Platelet Count 281 k/uL (150-450); RBC 3.71 m/uL (3.80-5.40); RDW 11.5 % (11.5-15.5); WBC 8.3 k/uL (3.8-10.6)
[2019-09-30 08:50] LABS: ALT 239 U/L (4-34); AST 184 U/L (14-36); African American GFR (CKD) >90 (>60 ml/min/1.73 sqM); Alkaline Phosphatase 128 U/L (38-126); Anion Gap 9 mmol/L; Blood Urea Nitrogen 14 mg/dL (7-17); Calcium 8.4 mg/dL (8.4-10.2); Carbon Dioxide 26 mmol/L (22-30); Chloride 106 mmol/L (98-107); Glucose 99 mg/dL (74-99); Non-African American GFR(CKD) 90 (>60 ml/min/1.73 sqM); Potassium 3.9 mmol/L (3.5-5.1); Sodium 141 mmol/L (137-145); Total Protein 5.4 g/dL (6.3-8.2)
--- NOTE | 2019-09-30 13:42 | P.HPADDEND ---
H&P Addendum H&P Addendum Date: 09/30/19 Patient reports some improvement of abdominal pain. LFTs also slowly improving. We'll proceed with robotic cholecystectomy. Benefits and risks described.
[2019-09-30] MEDS ORDERED: INDOCYANINE GREEN 25 MG VIAL IV ONE ×2 (15:00→16:29)
[2019-09-30] MEDS ORDERED: IV FLUID CONTINUATION 1,000 ML IV ONE (15:01)
[2019-09-30] MEDS: HEPARIN SODIUM,PORCINE 5,000 UNIT/ML 1 ML VIAL SQ ONE ×2 (15:17→15:20)
[2019-09-30 15:21] VITALS: BMI 18.6
[2019-09-30] MEDS ORDERED: DEXAMETHASONE SOD PHOSPHATE 4 MG/ML 1 ML VIAL IV ONE (15:21)
[2019-09-30] MEDS ORDERED: ONDANSETRON 4 MG/2 ML VIAL IVP ONE (15:21)
--- NOTE | 2019-09-30 15:27 | P.PN ---
Subjective 69-year-old admitted for the possible cholecystitis patient will undergo cholecystectomy today. Constitutional: Denied any fatigue denied any fever. Cardio vascular: denied any chest pain, palpitations Gastrointestinal denied any nausea vomiting Pulmonary: Denied any shortness of breath cough Neurologic denied any new focal deficits All inpatient medications were reviewed and appropriate changes in these medications as dictated in the interval history and assessment and plan. Objective - Vital Signs Vital signs: Vital Signs Temp 97.9 F 09/30/19 14:28 Pulse 70 09/30/19 15:03 Resp 16 09/30/19 15:03 BP 120/60 09/30/19 15:03 Pulse Ox 97 09/30/19 15:03 Intake & Output 09/29/19 09/30/19 09/30/19 18:59 06:59 18:59 Intake Total 0 260 Balance 0 260 Weight 63.503 kg 58.967 kg Intake: Intake, IV Titration 260 Amount Piperacillin-Tazobactam 3 100 .375 gm In Sodium Chloride 0.9% 100 ml @ 25 mls/hr IVPB Q8HR LEANNE Rx# :[id number] Sodium Chloride 0.9% 1, 160 000 ml @ 20 mls/hr IV . Q24H LEANNE Rx#:[id number] Oral 0 Other: Voiding Method Toilet # Voids 1 - Exam PHYSICAL EXAMINATION: GENERAL: The patient is alert and oriented x3, not in any acute distress. Well developed, well nourished. HEENT: Pupils are round and equally reacting to light. EOMI. No scleral icterus. No conjunctival pallor. Normocephalic, atraumatic. No pharyngeal erythema. No thyromegaly. CARDIOVASCULAR: S1 and S2 present. No murmurs, rubs, or gallops. PULMONARY: Chest is clear to auscultation, no wheezing or crackles. ABDOMEN: Soft, nontender, nondistended, normoactive bowel sounds. No palpable organomegaly. MUSCULOSKELETAL: No joint swelling or deformity. EXTREMITIES: No cyanosis, clubbing, or pedal edema. NEUROLOGICAL: Gross neurological examination did not reveal any focal deficits. SKIN: No rashes. - Labs CBC & Chem 7: 09/30/19 08:10 09/30/19 08:10 Labs: Abnormal Lab Results - Last 24 Hours (Table) 09/30/19 09/30/19 Range/Units 08:10 08:10 RBC 3.71 L (3.80-5.40) m/uL Lymphocytes # 0.7 L (1.0-4.8) k/uL AST 184 H (14-36) U/L ALT 239 H (4-34) U/L Alkaline Phosphatase 128 H (38-126) U/L Total Protein 5.4 L (6.3-8.2) g/dL Albumin 3.0 L (3.5-5.0) g/dL Assessment and Plan Plan: Possible cholecystitis: Patient will undergo cholecystectomy today patient will be continued on Zosyn -Elevated liver enzymes etiology can be cholelithiasis or gallbladder disease although cannot completely rule out statin-induced elevation of liver enzymes for now will hold off on statin. Patient's the liver enzymes are coming down -History of CVA multiple in the past because of which patient is on aspirin which is being held for surgery today patient will be resumed on this medication -Hearing impairment chronic with cochlear implants in the past -Hypertension hold off amlodipine patient blood pressures normal this medication is being held with concerns of hypotension from sepsis -Hyperlipidemia
[2019-09-30] MEDS ORDERED: ROCURONIUM BROMIDE 10 MG/ML 5 ML VIAL IV ONE (16:29)
[2019-09-30] MEDS ORDERED: PROPOFOL 10 MG/ML 20 ML VIAL IV ONE (16:29)
[2019-09-30] MEDS ORDERED: NEOSTIGMINE 1 MG/ML 10 ML VIAL ONE (16:29)
[2019-09-30] MEDS ORDERED: SUCCINYLCHOLINE CHLORIDE 100 MG/5 ML SYR IV ONE (16:29)
[2019-09-30] MEDS ORDERED: LIDOCAINE 1% INJ 10MG/ML (20 ML MDV) ONE (16:29)
[2019-09-30] MEDS ORDERED: GLYCOPYRROLATE 0.2 MG/ML 2 ML VIAL ONE (16:29)
[2019-09-30] MEDS ORDERED: MIDAZOLAM 2 MG/2 ML VIAL ONE (16:29)
[2019-09-30] MEDS ORDERED: fentaNYL (PF) 50 MCG/ML 2 ML AMP ONE (16:29)
[2019-09-30] MEDS ORDERED: HYDROmorphone (PF) 1 MG/ML ONE (16:29)
[2019-09-30] MEDS ORDERED: SODIUM CHLORIDE 0.9% 100 ML with ceFAZolin 2,000 MG IV ONE ×2 (16:48)
[2019-09-30] MEDS ORDERED: BUPIVACAINE-EPI 0.5%-1:200,000 10 ML VIAL SQ ONE (16:55)
[2019-09-30] MEDS ORDERED: LACTATED RINGERS 1,000 ML IV ONE (17:06)
[2019-09-30] MEDS ORDERED: HYDROcodone/APAP 5-325MG 1 EACH TAB PO PRN (20:10)
--- NOTE | 2019-09-30 20:13 | P.OP ---
Date of Procedure: 09/30/19 Description of Procedure: SURGEON: KARLOS CRAWLEY MD PREOPERATIVE DIAGNOSES: 1. Abnormal computed tomography scan for acute cholecystitis 2. Elevated liver enzymes 3. Deafness with cochlear implant 4. CVA with sequela of blindness 5. Hyperlipidemia POSTOPERATIVE DIAGNOSES: 1. Abnormal computed tomography scan for acute cholecystitis 2. Elevated liver enzymes 3. Deafness with cochlear implant 4. CVA with sequela of blindness 5. Hyperlipidemia 6. Gangrenous cholecystitis with hydrops OPERATION: 1. Robotic-assisted da Clifford Xi laparoscopic sub-total cholecystectomy, multiport with FIREFLY 2. Robotic-assisted da Clifford Xi laparoscopic place of adhesions, over 1 hour 3. Placement of round #19 BREANNE drain at right upper quadrant COMPLICATIONS: None. Estimated Blood Loss (ml): 50 Pathology: other (Gallbladder including gallbladder fluid) Condition: stable Disposition: floor Operative Findings: 1. Complete full-thickness gangrenous cholecystitis with subtotal cholecystectomy at infundibulum INDICATIONS: The patient is a 69-year-old female who presents with an abnormal computed tomography scan consistent with acute cholecystitis including elevated transaminases. Surgical intervention with a laparoscopic cholecystectomy was described at length. Informed consent was obtained. Robotic assisted laparoscopic approach was described. Benefits and risks of the procedure including but not limited to bleeding, infection, injury to the biliary tree was described. Informed consent was obtained. DESCRIPTION OF PROCEDURE: Patient was brought to the operating room, placed in supine position. After general induction, the abdomen had been prepped and draped in standard sterile fashion. The robotic da Clifford XI system was primed. After a timeout protocol was performed, the patient had been prepped and draped in standard sterile fashion. The patient was injected with indocyanine green. A 5 mm 0 degrees laparoscopic trocar entry was performed along the left upper quadrant. The abdomen insufflated to 15 mmHg pressure which he tolerated well. Diagnostic laparoscopy demonstrated no injury to bowel viscera or mesentery. Dense adhesions greater omentum over the gallbladder was identified. Next, two 8 mm robotic ports were placed along the right upper abdomen. The camera 8-mm port was maintained along the epigastrium. Another 8 mm port was placed along the left upper abdominal wall after exchanging the 5 mm port. Please note that the ports were placed at least 10 to 15 cm away from the target anatomy of the gallbladder. The robot was docked along the left lateral abdomen. The patient was repositioned in reverse Trendelenburg position. Using a grasper for arm 3, a grasper for arm 4, including hook cautery for arm 1, the robotic system was docked and primed as described. Instruments were interchanged by the assistant professor of theater including hook cautery, Bovie cautery and clip appliers. Additional instruments used were vessel sealer including robotic stapler and suction biomedical photographer. I had sat at the console. The entire gallbladder was encased in the omentum and surrounding tissues consistent with severe inflammation of the gallbladder. Once the adhesions around the gallbladder were released, the gallbladder wall was moderately inflamed and thickened consistent with acute cholecystitis. The cystic structures were completely obscured by severe edema necessitating dome down technique. Extensive lysis of adhesions including dissection of the gallbladder over 2 hours was performed to prevent harm to the cystic structures and common bile duct. The gallbladder fundus was retracted over the dome of the liver. The cystic structures were completely obscured with edematous infundibulum and fatty tissue. A dome down technique was performed removing the gallbladder from the hepatic fossa. Additionally the gallbladder was intrahepatic adding complexity to the case. The gallbladder was decompressed with clear bile found consistent with hydrops. Additionally purulence was found emanating from the gallbladder. With the dense adhesions and completely fusing of the cystic structures to the common bile duct, a subtotal cholecystectomy was proposed. Using indocyanine green drain, the entire gallbladder lacked visualization consistent with acute cholecystitis. The port along the left upper quadrant was exchanged for a 12 mm port. A green 45 mm robotic stapler was used to divide the gallbladder at the infundibulum. Electro-Bovie cautery was used to remove the gallbladder from the hepatic fossa. Hemostasis was checked and found to be adequate. The abdomen was irrigated with normal saline until solution was clear. A round #19 drain was placed at the hepatic fossa and exited via the right lateral abdominal wall with a 2-0 nylon stitch and bulb suction. The robot was undocked. I re-scrubbed into the case. Using a 10 mm Endo Catch bag via the left upper quadrant incision, the specimen was removed from the abdominal cavity. All pneumoperitoneum instruments were evacuated from the abdominal cavity. The incisions were reapproximated using 4-0 Monocryl in an interrupted subcuticular fashion. Fascial defects was closed using Dayday Brown and 0 Vicryl at the left upper quadrant. Please note along the trocar sites, local anesthetic was placed as a field block prior to insertion of all instruments. The skin was cleansed with dilute hydrogen peroxide. Liquid glue was applied to the skin. Optifoam dressing was placed along the left upper quadrant and BREANNE drain site. At the end of the procedure needle, sponge, and instrument count had been verified correct by the surgical clinical reviewer. The patient was transferred to postanesthesia care unit in stable condition. Console time 134 minutes
[2019-09-30] MEDS: SODIUM CHLORIDE 0.9% 1,000 ML IV SCH (22:58)
[2019-09-30] MEDS: LATANOPROST 0.005% OPHTH DROPS 2.5 ML BTL BOTH EYES SCH (23:23)
[2019-09-30] MEDS: HYDROmorphone 1 MG/ML 1 ML SYRINGE IVP PRN (23:24)
[2019-10-01] MEDS: PIPERACILLIN-TAZOBACTAM 3.375 GM in SODIUM CHLORIDE 0.9% 100 ML IVPB SCH ×2 (00:41→08:49)
[2019-10-01] MEDS: HYDROmorphone 1 MG/ML 1 ML SYRINGE IVP PRN (04:08)
[2019-10-01] MEDS: PANTOPRAZOLE 40 MG/10 ML VIAL IV SCH (08:49)
[2019-10-01] MEDS: TIMOLOL 0.5% OPHTH DROPS 5 ML BTL BOTH EYES SCH (08:55)
[2019-10-01] MEDS ORDERED: ENOXAPARIN 30 MG/0.3 ML SYRINGE SQ SCH (09:00)
[2019-10-01] MEDS ORDERED: ASPIRIN 325 MG TAB PO SCH (09:00)
[2019-10-01 09:27] LABS: Basophils % (A) 0 %; Eosinophils # (A) 0.1 k/uL (0-0.7); Eosinophils % (A) 1 %; HCT 32.9 % (34.0-46.0); HGB 11.2 gm/dL (11.4-16.0); Lymphocytes # (A) 0.6 k/uL (1.0-4.8); Lymphocytes % (A) 7 %; MCH 31.4 pg (25.0-35.0); MCV 92.1 fL (80.0-100.0); Mean Platelet Volume 7.7; Monocytes # (A) 0.5 k/uL (0-1.0); Monocytes % (A) 5 %; Neutrophils # (A) 7.9 k/uL (1.3-7.7); Neutrophils % (A) 86 %; Platelet Count 341 k/uL (150-450); RBC 3.58 m/uL (3.80-5.40); RDW 11.6 % (11.5-15.5); WBC 9.2 k/uL (3.8-10.6)
[2019-10-01 09:38] LABS: ALT 186 U/L (4-34); AST 134 U/L (14-36); African American GFR (CKD) >90 (>60 ml/min/1.73 sqM); Albumin 2.8 g/dL (3.5-5.0); Alkaline Phosphatase 116 U/L (38-126); Anion Gap 8 mmol/L; Blood Urea Nitrogen 14 mg/dL (7-17); Calcium 8.4 mg/dL (8.4-10.2); Carbon Dioxide 26 mmol/L (22-30); Chloride 102 mmol/L (98-107); Glucose 99 mg/dL (74-99); Non-African American GFR(CKD) 88 (>60 ml/min/1.73 sqM); Potassium 4.1 mmol/L (3.5-5.1); Sodium 136 mmol/L (137-145); Total Bilirubin 0.8 mg/dL (0.2-1.3); Total Protein 5.3 g/dL (6.3-8.2)
[2019-10-01 12:08] VITALS: BP 128/66; PULSE 69; RESP 17; TEMP 96
[2019-10-01 13:19] LABS: ALT 176 U/L (4-34); AST 120 U/L (14-36); African American GFR (CKD) >90 (>60 ml/min/1.73 sqM); Alkaline Phosphatase 118 U/L (38-126); Anion Gap 9 mmol/L; Basophils % (A) 0 %; Blood Urea Nitrogen 14 mg/dL (7-17); Calcium 8.4 mg/dL (8.4-10.2); Carbon Dioxide 26 mmol/L (22-30); Chloride 102 mmol/L (98-107); Eosinophils # (A) 0.1 k/uL (0-0.7); Eosinophils % (A) 1 %; Glucose 113 mg/dL (74-99); HCT 33.7 % (34.0-46.0); HGB 11.5 gm/dL (11.4-16.0); Lymphocytes # (A) 0.8 k/uL (1.0-4.8); Lymphocytes % (A) 10 %; MCH 31.4 pg (25.0-35.0); MCHC 34.2 g/dL (31.0-37.0); Mean Platelet Volume 7.3; Monocytes # (A) 0.4 k/uL (0-1.0); Monocytes % (A) 5 %; Neutrophils # (A) 6.6 k/uL (1.3-7.7); Neutrophils % (A) 83 %; Non-African American GFR(CKD) 88 (>60 ml/min/1.73 sqM); Platelet Count 354 k/uL (150-450); Potassium 3.6 mmol/L (3.5-5.1); RBC 3.66 m/uL (3.80-5.40); RDW 11.5 % (11.5-15.5); Sodium 137 mmol/L (137-145); Total Bilirubin 0.7 mg/dL (0.2-1.3); Total Protein 5.4 g/dL (6.3-8.2); WBC 7.9 k/uL (3.8-10.6)
--- NOTE | 2019-10-01 13:42 | P.DS ---
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 She was in [place] visiting them return to [place]. She was brought to the emergency room given the duration of her symptoms. No reports of severe abdomi nal pain. No jaundice. No dark-colored stools. Lower appetite confirmed. CT of the abdomen and pelvis obtained demonstrates findings consistent with acute cholecystitis. Patient underwent robotic subtotal cholecystectomy with placement of BREANNE drain with Dr. Correia on 09/30/2019. Patient is doing well postoperatively without any complications. WBC is within normal limits. LFTs are improving. Patient is very anxious to be discharged home. Dr. Correia agreeable to DC home today. BREANNE drain to remain intact at discharge. Patient is prescribed Cipro and Flagyl for one week. She is to follow-up with Dr. Correia next week. Please see EMR for further hospital course details. Discharge Diagnosis 1. Gangrenous cholecystitis with hydrops Nurse practitioner note has been reviewed by physician. Signing provider agrees with the documented findings, assessment, and plan of care. Patient Condition at Discharge: Good Plan - Discharge Summary Discharge Rx Participant: No New Discharge Prescriptions: New Ciprofloxacin HCl [Cipro] 500 mg PO BID #14 tab metroNIDAZOLE [Flagyl] 500 mg PO Q8HR #21 tab Acetaminophen Tab [Tylenol Tab] 650 mg PO Q4H PRN #30 tablet PRN Reason: Pain Discontinued amLODIPine [Norvasc] 5 mg PO DAILY No Action Aspirin EC [Ecotrin] 325 mg PO DAILY Timolol 0.5% Ophth Soln [Timoptic 0.5% Ophth Soln] 1 drop BOTH EYES BID Latanoprost/Pf [Latanoprost 0.005% Eye Drop] 1 drop BOTH EYES HS Atorvastatin [Lipitor] 80 mg PO DAILY Vitamin D3(Unknown Dose) 1 tab PO DAILY Discharge Medication List Aspirin EC [Ecotrin] 325 mg PO DAILY 09/29/19 [History] Atorvastatin [Lipitor] 80 mg PO DAILY 09/29/19 [History] Latanoprost/Pf [Latanoprost 0.005% Eye Drop] 1 drop BOTH EYES HS 09/29/19 [History] Timolol 0.5% Ophth Soln [Timoptic 0.5% Ophth Soln] 1 drop BOTH EYES BID 09/29/19 [History] Vitamin D3(Unknown Dose) 1 tab PO DAILY 09/29/19 [History] Acetaminophen Tab [Tylenol Tab] 650 mg PO Q4H PRN #30 tablet 10/01/19 [Rx] Ciprofloxacin HCl [Cipro] 500 mg PO BID #14 tab 10/01/19 [Rx] metroNIDAZOLE [Flagyl] 500 mg PO Q8HR #21 tab 10/01/19 [Rx] Follow up Appointment(s)/Referral(s): Lucia Correia MD [STAFF PHYSICIAN] - 10/05/19 (please make patient appt for friday) [facility], [NON-STAFF] - As Needed Ej Joy MD [Primary Care Provider] - 1-2 days (office closed. patient to make own appointment. ) Patient Instructions/Handouts: Caleb-العلي Drain Care (DC), Laparoscopic Cholecystectomy (DC) Activity/Diet/Wound Care/Special Instructions: Monitor BREANNE drain output. Keep a log of output and bring with you to follow up appointment. No lifting over 10 pounds You may shower. No soaking or tub baths Very light activity until you are reevaluated at your follow up appointment with your surgeon low fat, bland diet as tolerated Discharge Disposition: HOME WITH HOME HEALTH SERVICES <Lucia Correia - Last Filed: 10/01/19 17:52> Providers Date of admission: 09/30/19 20:10 Attending physician: Lucia Correia Consults: 09/29/19 15:20 Consult Physician Routine Consulting Provider: Leonel Nelson Consult Reason/Comments: Medical management Do you want consulting provider notified?: Yes Primary care physician: Ej Joy - Discharge Diagnosis(es) (1) Elevated transaminase level Status: Acute (2) Deafness Status: Acute (3) Cochlear implant in place Status: Acute (4) Blindness Status: Acute (5) Hypertension Status: Acute (6) Hyperlipidemia Status: Acute (7) Acute cholecystitis Status: Acute (8) History of CVA (cerebrovascular accident) Status: Acute (9) Nausea & vomiting Status: Acute Hospital Course: As above. Patient had gangrenous cholecystitis. IV antibiotics continued. Repeat labs demonstrated improvement of LFTs. Patient reports feeling extremely well. Her pain was well controlled. In fact, her WBC was normal. Recommend continued home antibiotics as she is clinically improved remarkably well. BREANNE to be discontinued in the office.
--- NOTE | 2019-10-01 14:12 | P.PN ---
Subjective 69-year-old admitted for the possible cholecystitis patient will undergo cholecystectomy today. 10/01/2019 Patient is clinically doing well has a surgical drain in place insisting on discharge. Patient is being discharged by surgery patient still has a surgical drain in place. Antibiotics as per general surgery and this can urine her amlodipine in spite of for discoloration of this medication for last 3 days had blood pressures remain low normal systolic around 100-110 as the patient to check the blood pressure at home holding this medication and take it to her primary care physician who can reassess the need for antidepressant medications. Constitutional: Denied any fatigue denied any fever. Cardio vascular: denied any chest pain, palpitations Gastrointestinal denied any nausea vomiting Pulmonary: Denied any shortness of breath cough Neurologic denied any new focal deficits All inpatient medications were reviewed and appropriate changes in these medications as dictated in the interval history and assessment and plan. Objective - Vital Signs Vital signs: Vital Signs Temp 96.0 F L 10/01/19 12:07 Pulse 69 10/01/19 12:07 Resp 17 10/01/19 12:07 BP 128/66 10/01/19 12:07 Pulse Ox 92 L 10/01/19 12:07 Intake & Output 09/30/19 10/01/19 10/01/19 18:59 06:59 18:59 Intake Total 1560 50 Output Total 120 20 Balance 1560 -70 -20 Weight 58.967 kg Intake: IV 1300 50 Intake, IV Titration 260 Amount Piperacillin-Tazobactam 3 100 .375 gm In Sodium Chloride 0.9% 100 ml @ 25 mls/hr IVPB Q8HR LEAN[facility] Rx# :[id number] Sodium Chloride 0.9% 1, 160 000 ml @ 20 mls/hr IV . Q24H LEANNE Rx#:[id number] Output: Drainage 70 20 Anterior Abdomen 70 20 Estimated Blood Loss 50 Other: Voiding Method Toilet Toilet Toilet # Voids 3 2 - Exam PHYSICAL EXAMINATION: GENERAL: The patient is alert and oriented x3, not in any acute distress. Well developed, well nourished. HEENT: Pupils are round and equally reacting to light. EOMI. No scleral icterus. No conjunctival pallor. Normocephalic, atraumatic. No pharyngeal erythema. No thyromegaly. CARDIOVASCULAR: S1 and S2 present. No murmurs, rubs, or gallops. PULMONARY: Chest is clear to auscultation, no wheezing or crackles. ABDOMEN: Soft, nontender, nondistended, normoactive bowel sounds. No palpable organomegaly. Patient has a right upper quadrant surgical drainage in place with bilious drainage MUSCULOSKELETAL: No joint swelling or deformity. EXTREMITIES: No cyanosis, clubbing, or pedal edema. NEUROLOGICAL: Gross neurological examination did not reveal any focal deficits. SKIN: No rashes. - Labs CBC & Chem 7: 10/01/19 12:45 10/01/19 12:45 Labs: Abnormal Lab Results - Last 24 Hours (Table) 10/01/19 10/01/19 10/01/19 Range/Units 08:27 08:27 12:45 RBC 3.58 L 3.66 L (3.80-5.40) m/uL Hgb 11.2 L (11.4-16.0) gm/dL Hct 32.9 L 33.7 L (34.0-46.0) % Neutrophils # 7.9 H (1.3-7.7) k/uL Lymphocytes # 0.6 L 0.8 L (1.0-4.8) k/uL Sodium 136 L (137-145) mmol/L Glucose (74-99) mg/dL AST 134 H (14-36) U/L ALT 186 H (4-34) U/L Total Protein 5.3 L (6.3-8.2) g/dL Albumin 2.8 L (3.5-5.0) g/dL 10/01/19 Range/Units 12:45 RBC (3.80-5.40) m/uL Hgb (11.4-16.0) gm/dL Hct (34.0-46.0) % Neutrophils # (1.3-7.7) k/uL Lymphocytes # (1.0-4.8) k/uL Sodium (137-145) mmol/L Glucose 113 H (74-99) mg/dL AST 120 H (14-36) U/L ALT 176 H (4-34) U/L Total Protein 5.4 L (6.3-8.2) g/dL Albumin 3.0 L (3.5-5.0) g/dL Microbiology - Last 24 Hours (Table) 09/30/19 19:45 Gram Stain - Preliminary Other - Other Wound Culture - Preliminary 09/30/19 19:45 Anaerobic Culture - Preliminary Other - Other 09/30/19 19:45 Fungal Culture - Preliminary Other - Other 09/29/19 15:15 Blood Culture - Preliminary Blood No Growth after 24 hours Assessment and Plan Plan: Gangrenous cholecystitis: Patient is status post cholecystectomy with a surgical drain in place and is being discharged -Elevated liver enzymes secondary to gallbladder disease and a statin will be resumed aspirin will be resumed as well -History of CVA multiple in the past because of which patient is on aspirin which is being held for surgery today patient will be resumed on this medication -Hearing impairment chronic with cochlear implants in the past -Hypertension hold off amlodipine and patient will check her blood pressure at home. -Hyperlipidemia
[2019-10-02] MEDS ORDERED: ATORVASTATIN 80 MG TAB PO SCH (09:00)
--- NOTE | 2019-10-05 09:24 | CDI ---
Documentation Clarification Form Date: 10/05/19 From: Nahed Hughes CCS Phone: If you have a question about this query, please contact Tania Malloy, Hadoop Analyst at [phone] between 8am and 5pm. Admit Date: 09/30/19 Discharge Date:10/01/19 Patient Name: Ana Laura Florentino Visit Number: [id number] ATTENTION: The Clinical Documentation Specialists (CDI) and [facility] Coding Staff appreciate your assistance in clarifying documentation. Please respond to the clarification below the line at the bottom and electronically sign. The CDI & [facility] Coding staff will review the response and follow-up if needed. Please note: Queries are made part of the Legal Health Record. If you have any questions, please contact the author of this message via ITS. Dear Dr. Correia, Patient has been described as underweight. History/Risk Factors: Acute cholecystitis w/ gangrene, Nausea/vomiting Clinical Indicators: Inadequate intake Patients weight is: 58.967 kg Patients height is: 5 ft 10 in Calculated BMI is: 18.6 Albumin: 3.3, 3.0, 2.8 Total Protein: 5.7, 5.4, 5.3 Treatments: Monitor PO/ monitor for diet advancement/tolerance Dietary Consult: 09/30/19 In order to capture the severity of condition associated with patient BMI of 18.6, a clinical diagnosis needs to be documented by the physician. Please clarify: Cachexia Underweight Malnutrition Mild Moderate Severe Other Unable to determine I DO NOT AGREE WITH ABOVE ASSESSMENT. PATIENT BMI IS OVER 18.5---NOT UNDERWEIGHT!!!! NONE OF MY PERSONAL PROGRESS NOTES REFLECT THAT. KM 10/05/19 11:44 MTDD
== END 2019-10-01 15:30 | disposition home health service (06) | DRG 418 ==
LOC: EC 11:47 → 4SSUR 15:19 → 6NMEDSUR 23:45 → OBSVTOIN 09-30 20:10
PROVIDERS: ADMIT Surgery Plastic and Reconstructive Surgery; ATTEND Surgery Plastic and Reconstructive Surgery
PROC: 0DNU4ZZ Release Omentum, Percutaneous Endoscopic Approach (ICD-10-PCS; 2019-09-30)
PROC: 8E0W4CZ Robotic Assisted Procedure of Trunk Region, Percutaneous Endoscopic Approach (ICD-10-PCS; 2019-09-30)
PROC: 0FT44ZZ Resection of Gallbladder, Percutaneous Endoscopic Approach (ICD-10-PCS; principal; 2019-09-30 08:40)
DX: K81.0 Acute cholecystitis (principal); I69.354 Hemiplegia and hemiparesis following cerebral infarction affecting left non-dominant side; K82.1 Hydrops of gallbladder; K82.A1 Gangrene of gallbladder in cholecystitis; I69.398 Other sequelae of cerebral infarction; H91.90 Unspecified hearing loss, unspecified ear; I10 Essential (primary) hypertension; E78.5 Hyperlipidemia, unspecified; R11.2 Nausea with vomiting, unspecified; H54.62 Unqualified visual loss, left eye, normal vision right eye; N20.0 Calculus of kidney; K66.0 Peritoneal adhesions (postprocedural) (postinfection); Z71.3 Dietary counseling and surveillance; Z79.82 Long term (current) use of aspirin; Z79.899 Other long term (current) drug therapy; Z96.21 Cochlear implant status; Z90.710 Acquired absence of both cervix and uterus; Z98.890 Other specified postprocedural states; Z80.1 Family history of malignant neoplasm of trachea, bronchus and lung
CPT/HCPCS: 36415; 71046; 74018; 74177; 80053; 81001; 82150; 83605; 83690; 84484; 85025; 85610; 85730; 87040; 87070; 87075; 87102; 87205; 87502; 88304; 93005; 96361; 96365; 96375; 99285

== ENCOUNTER → 2020-01-12 | Outpatient (CLI) | payer MEDICARE, BC ==
--- NOTE | 2020-01-12 15:00 | CT ---
EXAMINATION TYPE: CT brain wo/w con DATE OF EXAM: 01/12/2020 COMPARISON: None. HISTORY: visual disturbance/loss of vision CT DLP: 3802.9 mGycm Automated exposure control for dose reduction was used. CONTRAST: CT scan of the head is performed without and with IV Contrast, patient injected with 100 mL of Isovue 300. FINDINGS: Noncontrast images show no acute intracranial hemorrhage or midline shift. Exam noted suboptimal as there is artifact from bilateral parietal scalp stimulating devices extendin g to the temporal regions at site of surgery. There is old infarct or focal volume loss left frontal lobe axial image 23 second area of old infarct medial right occipital lobe image 24. Background mild ventricular and sulcal prominence and areas of low-attenuation in the deep and periventricular white matter. Old lacunar infarct right thalamus axial image 22. Postcontrast images show no suspicious enh ancing intraparenchymal mass. Paranasal sinuses are clear. Prior temporal bone surgical changes noted . Residual fluid in the inferior mastoid air cells noted bilaterally, cannot exclude mastoiditis in t he appropriate clinical setting.. Suprasellar cistern is maintained. IMPRESSION: As above
== END | disposition home or self-care (01) ==
LOC: RADCTMAIN 13:42
PROVIDERS: ATTEND Ophthalmology
DX: I63.81 Other cerebral infarction due to occlusion or stenosis of small artery (principal); Z98.890 Other specified postprocedural states
CPT/HCPCS: 82565; 84520; 70470; 36415; Q9967

== ENCOUNTER 2020-11-10 10:33 | Emergency (ER) | payer BC, MEDICARE ==
[2020-11-10 10:47] VITALS: BP 118/71; PULSE 61; RESP 18; TEMP 98
[2020-11-10] MEDS ORDERED: KETOROLAC 15 MG/ML 1 ML VIAL IVP STA (11:32)
[2020-11-10] MEDS ORDERED: ONDANSETRON 4 MG/2 ML VIAL IVP STA (11:32)
[2020-11-10] MEDS ORDERED: SODIUM CHLORIDE 0.9% 1,000 ML IV STA (11:32)
[2020-11-10 12:18] LABS: Basophils # (A) 0.1 k/uL (0-0.2); Basophils % (A) 1 %; Eosinophils # (A) 0.1 k/uL (0-0.7); Eosinophils % (A) 1 %; HGB 14.3 gm/dL (11.4-16.0); Lymphocytes # (A) 0.8 k/uL (1.0-4.8); Lymphocytes % (A) 9 %; MCH 31.8 pg (25.0-35.0); MCHC 34.9 g/dL (31.0-37.0); MCV 91.3 fL (80.0-100.0); Mean Platelet Volume 7.2; Monocytes # (A) 0.2 k/uL (0-1.0); Monocytes % (A) 3 %; Neutrophils # (A) 7.9 k/uL (1.3-7.7); Neutrophils % (A) 87 %; Platelet Count 254 k/uL (150-450); RBC 4.49 m/uL (3.80-5.40); RDW 11.8 % (11.5-15.5); WBC 9.1 k/uL (3.8-10.6)
[2020-11-10 12:36] LABS: Albumin 4.3 g/dL (3.5-5.0); Calcium 9.4 mg/dL (8.4-10.2); Total Bilirubin 0.8 mg/dL (0.2-1.3); Total Protein 6.9 g/dL (6.3-8.2)
[2020-11-10 12:37] LABS: Appearance,Urine Turbid (Clear); Bacteria,Urine Occasional /hpf; Bilirubin,Urine Negative (Negative); Blood,Urine Large (Negative); Color,Urine Yellow; Glucose,Urine (UA) Negative (Negative); Ketones,Urine Negative (Negative); Leukocyte Esterase,Urine Small (Negative); Mucus,Urine Occasional /hpf; Nitrite,Urine Negative (Negative); PH, Urine 6.5 (5.0-8.0); Protein,Urine Trace (Negative); RBC,Urine >182 /hpf (0-5); Specific Gravity,Urine 1.028 (1.001-1.035); Squamous Epithelial Cell,Urine <1 /hpf (0-4); WBC,Urine 33 /hpf (0-5)
--- NOTE | 2020-11-10 12:37 | CT ---
EXAMINATION TYPE: CT abdomen pelvis wo con DATE OF EXAM: 11/10/2020 COMPARISON: INDICATION: Left sided flank pain DLP: 529.5 mGycm, Automated exposure control for dose reduction was used. CONTRAST: mL of . Study performed without Oral Contrast TECHNIQUE: Axial images were obtained from above the diaphragm to the pubic rami in the axial plane a t 5 mm thick sections. Reconstructed images are reviewed on the computer in the coronal plane. FINDINGS: Limited CT sections are obtained the lung bases. There appears to be some minimal compressive atelec tasis present at the lung bases. There is a focal area of increased density along the anterior right diaphragm may be some atelectasis. Underlying mass measuring 2.2 x 1.2 cm not excluded. Series 201 im age 13.. Small hiatal hernia is present. CT ABDOMEN: Liver: Normal Spleen: Normal Pancreas: Normal Adrenal glands: The adrenal glands are normal. Gallbladder: Normal Kidneys: No masses are evident. No hydronephrosis is present. No cysts are present. A 0.2 cm calci fication is at the mid to inferior right kidney. A punctate upper pole calcification may be present a t the left kidney. No hydronephrosis is evident. Mild proximal left hydroureter may be present. No ob structing ureteral stone is identified. See urinary bladder below. Aorta: Normal Inferior vena cava: Normal. CT PELVIS: Loops of bowel within the abdomen and pelvis are normal. A few diverticular changes are within the s igmoid colon. No acute diverticulitis is evident. This study is performed without oral contrast. Appendix: Normal as visualized. Urinary bladder: There is a punctate calcification within the mid posterior urinary bladder. Recent p assage of the calcification could be considered. Urinary bladder calcification could be considered. T his is estimated to measure 1 mm in size. Genitourinary structures: Uterus and ovaries are not identified. Osseous structures: No suspicious lytic or sclerotic lesions. IMPRESSIONS: 1. 1 mm calcification may be within the dependent urinary bladder. Consider recent left ureteral pas svetlana of a calcification. 2. Nonobstructing bilateral renal stones are present. 3. Minimal prominence of the proximal left ureter. 4. Diverticulosis without acute diverticulitis. 5. Suspected atelectasis bilateral lung bases. Underlying right middle lobe mass at the diaphragm how ever is not excluded and is an interval change from comparison. Follow-up CT chest for reevaluation i s recommended.
[2020-11-10 12:44] LABS: Potassium 5.1 mmol/L (3.5-5.1)
--- NOTE | 2020-11-10 13:22 | ED ---
Female Urogenital HPI - General Chief complaint: Urogenital Stated complaint: Abd Pain Time Seen by Provider: 11/10/20 11:10 Source: patient, family Mode of arrival: ambulatory Limitations: no limitations - History of Present Illness Initial comments: Patient is a 70-year-old female with history of hypertension, hearing loss, stroke, presenting to the emergency Department with complaints of left flank pain increasing throughout today. Patient states she's been having some mild suprapubic discomfort over the past week or 2 and then this flank pain started today. She did go to urgent care who sent her into the ER to rule out a kidney stone. At any fevers or chills, no chest pain or shortness of breath, no anterior abdominal pain today. She does admit to some nausea, no vomiting. She does have some mild diarrhea. She has no further complaints at this time. Upon arrival to the ER, her vital signs are stable. - Related Data Home Medications Medication Instructions Recorded Confirmed Aspirin EC [Ecotrin] 325 mg PO DAILY 09/29/19 09/29/19 Atorvastatin [Lipitor] 80 mg PO DAILY 09/29/19 09/29/19 Latanoprost/Pf [Latanoprost 0.005% 1 drop BOTH EYES HS 09/29/19 09/29/19 Eye Drop] Timolol 0.5% Ophth Soln [Timoptic 1 drop BOTH EYES BID 09/29/19 09/29/19 0.5% Ophth Soln] Vitamin D3(Unknown Dose) 1 tab PO DAILY 09/29/19 09/29/19 Previous Rx's Medication Instructions Recorded Acetaminophen Tab [Tylenol Tab] 650 mg PO Q4H PRN #30 tablet 10/01/19 Ciprofloxacin HCl [Cipro] 500 mg PO BID #14 tab 10/01/19 metroNIDAZOLE [Flagyl] 500 mg PO Q8HR #21 tab 10/01/19 Cephalexin [Keflex] 500 mg PO BID 5 Days #10 cap 11/10/20 Ketorolac [Toradol] 10 mg PO Q8HR #10 tab 11/10/20 Ondansetron Odt [Zofran Odt] 4 mg PO Q8HR PRN #10 tab 11/10/20 Allergies Allergy/AdvReac Type Severity Reaction Status Date / Time No Known Allergies Allergy Verified 11/10/20 10:45 Review of Systems ROS Statement: Those systems with pertinent positive or pertinent negative responses have been documented in the HPI. ROS Other: All systems not noted in ROS Statement are negative. Past Medical History Past Medical History: Cancer, CVA/TIA, Hyperlipidemia, Hypertension Additional Past Medical History / Comment(s): hearing loss History of Any Multi-Drug Resistant Organisms: None Reported Past Surgical History: Ear Surgery, Hysterectomy Past Psychological History: No Psychological Hx Reported Smoking Status: Never smoker Past Alcohol Use History: None Reported Past Drug Use History: None Reported - Past Family History Mother Family Medical History: Cancer Additional Family Medical History / Comment(s): lung ca General Exam - General Exam Comments Initial Comments: GENERAL: Patient is well-developed and well-nourished. Patient is nontoxic and in mild distress. HEAD: Atraumatic, normocephalic. EYES: Pupils equal round and reactive to light, extraocular movements intact, sclera anicteric, conjunctiva are normal. Eyelids were unremarkable. ENT: TMs normal, nares patent, oropharynx clear without exudates. Moist mucous membranes. NECK: Normal range of motion, supple without lymphadenopathy or JVD. LUNGS: Unlabored respirations. Breath sounds clear to auscultation bilaterally and equal. No wheezes rales or rhonchi. HEART: Regular rate and rhythm without murmurs, rubs or gallops. ABDOMEN: Soft, nontender, normoactive bowel sounds. No guarding, no rebound. No masses appreciated. : Deferred MUSCULOSKELETAL: Normal extremities with adequate strength and normal range of motion, no pitting or edema. No clubbing or cyanosis. NEUROLOGICAL: Patient is alert and oriented x 3. Motor and sensory are also intact. Cranial nerves II through XII grossly intact. Symmetrical smile. Normal speech, normal gait. PSYCH: Normal mood, normal affect. SKIN: Warm, Dry, normal turgor, no rashes or lesions noted. Limitations: no limitations Course Vital Signs 11/10/20 10:45 Temperature 98 F Pulse Rate 61 Respiratory 18 Rate Blood Pressure 118/71 O2 Sat by Pulse 100 Oximetry Medical Decision Making - Medical Decision Making Patient is a 70-year-old female here for left flank pain increased today, and by urgent care to rule out kidney stone. Vital signs are stable. Labs show a normal white count, normal lactic acid, urine does have significantly amount of blood, bacteria. CT of the abdomen shows a 1 mm calcification within the bladder, consider recent left ureteral passage with mild hydronephrosis. Of note, there is underlying right middle lobe mass at the diaphragm, mass is not included, they recommended follow-up chest CT. I did speak with the radiologist, this is not an emergent change. I did discuss these findings with the patient. Patient received some fluids, Toradol and reports significant imp rovement in her symptoms. Patient will be discharged home with Toradol, antibiotic and Zofran. She will also follow up with her PCP regarding the CT findings. She is in agreement with this plan of care. Return parameters were discussed with the patient and she verbalized understanding. Case discussed with Dr. Cobian. - Lab Data Result diagrams: 11/10/20 11:55 11/10/20 11:55 Lab Results 11/10/20 11/10/20 11/10/20 Range/Units 11:55 11:55 11:55 WBC 9.1 (3.8-10.6) k/uL RBC 4.49 (3.80-5.40) m/uL Hgb 14.3 (11.4-16.0) gm/dL Hct 41.0 (34.0-46.0) % MCV 91.3 (80.0-100.0) fL MCH 31.8 (25.0-35.0) pg MCHC 34.9 (31.0-37.0) g/dL RDW 11.8 (11.5-15.5) % Plt Count 254 (150-450) k/uL MPV 7.2 Neutrophils % 87 % Lymphocytes % 9 % Monocytes % 3 % Eosinophils % 1 % Basophils % 1 % Neutrophils # 7.9 H (1.3-7.7) k/uL Lymphocytes # 0.8 L (1.0-4.8) k/uL Monocytes # 0.2 (0-1.0) k/uL Eosinophils # 0.1 (0-0.7) k/uL Basophils # 0.1 (0-0.2) k/uL Sodium 139 (137-145) mmol/L Potassium 5.1 (3.5-5.1) mmol/L Chloride 106 (98-107) mmol/L Carbon Dioxide 26 (22-30) mmol/L Anion Gap 7 mmol/L BUN 25 H (7-17) mg/dL Creatinine 0.78 (0.52-1.04) mg/dL Est GFR (CKD-EPI)AfAm 89 (>60 ml/min/1.73 sqM) Est GFR (CKD-EPI)NonAf 77 (>60 ml/min/1.73 sqM) Glucose 150 H (74-99) mg/dL Plasma Lactic Acid Randy (0.7-2.0) mmol/L Calcium 9.4 (8.4-10.2) mg/dL Total Bilirubin 0.8 (0.2-1.3) mg/dL AST 32 (14-36) U/L ALT 17 (4-34) U/L Alkaline Phosphatase 92 (38-126) U/L Total Protein 6.9 (6.3-8.2) g/dL Albumin 4.3 (3.5-5.0) g/dL Amylase 52 (30-110) U/L Lipase 86 (23-300) U/L Urine Color Yellow Urine Appearance Turbid H (Clear) Urine pH 6.5 (5.0-8.0) Ur Specific [place] 1.028 (1.001-1.035) Urine Protein Trace H (Negative) Urine Glucose (UA) Negative (Negative) Urine Ketones Negative (Negative) Urine Blood Large H (Negative) Urine Nitrite Negative (Negative) Urine Bilirubin Negative (Negative) Urine Urobilinogen 4.0 (<2.0) mg/dL Ur Leukocyte Esterase Small H (Negative) Urine RBC >182 H (0-5) /hpf Urine WBC 33 H (0-5) /hpf Ur Squamous Epith Cells <1 (0-4) /hpf Urine Bacteria Occasional H (None) /hpf Urine Mucus Occasional H (None) /hpf 11/10/20 Range/Units 11:55 WBC (3.8-10.6) k/uL RBC (3.80-5.40) m/uL Hgb (11.4-16.0) gm/dL Hct (34.0-46.0) % MCV (80.0-100.0) fL MCH (25.0-35.0) pg MCHC (31.0-37.0) g/dL RDW (11.5-15.5) % Plt Count (150-450) k/uL MPV Neutrophils % % Lymphocytes % % Monocytes % % Eosinophils % % Basophils % % Neutrophils # (1.3-7.7) k/uL Lymphocytes # (1.0-4.8) k/uL Monocytes # (0-1.0) k/uL Eosinophils # (0-0.7) k/uL Basophils # (0-0.2) k/uL Sodium (137-145) mmol/L Potassium (3.5-5.1) mmol/L Chloride (98-107) mmol/L Carbon Dioxide (22-30) mmol/L Anion Gap mmol/L BUN (7-17) mg/dL Creatinine (0.52-1.04) mg/dL Est GFR (CKD-EPI)AfAm (>60 ml/min/1.73 sqM) Est GFR (CKD-EPI)NonAf (>60 ml/min/1.73 sqM) Glucose (74-99) mg/dL Plasma Lactic Acid Randy 1.8 (0.7-2.0) mmol/L Calcium (8.4-10.2) mg/dL Total Bilirubin (0.2-1.3) mg/dL AST (14-36) U/L ALT (4-34) U/L Alkaline Phosphatase (38-126) U/L Total Protein (6.3-8.2) g/dL Albumin (3.5-5.0) g/dL Amylase (30-110) U/L Lipase (23-300) U/L Urine Color Urine Appearance (Clear) Urine pH (5.0-8.0) Ur Specific [place] (1.001-1.035) Urine Protein (Negative) Urine Glucose (UA) (Negative) Urine Ketones (Negative) Urine Blood (Negative) Urine Nitrite (Negative) Urine Bilirubin (Negative) Urine Urobilinogen (<2.0) mg/dL Ur Leukocyte Esterase (Negative) Urine RBC (0-5) /hpf Urine WBC (0-5) /hpf Ur Squamous Epith Cells (0-4) /hpf Urine Bacteria (None) /hpf Urine Mucus (None) /hpf Disposition Clinical Impression: Urinary tract infection, Left ureteral calculus Disposition: HOME SELF-CARE Condition: Stable Instructions (If sedation given, give patient instructions): Kidney Stones (ED) Additional Instructions: Please return to the Emergency Department if symptoms worsen or any other concerns. May take Toradol for severe pain, Zofran for nausea. Take antibiotic as prescribed please finish entire antibiotic. Follow-up with your family doctor regarding CT findings. Prescriptions: Cephalexin [Keflex] 500 mg PO BID 5 Days #10 cap Ketorolac [Toradol] 10 mg PO Q8HR #10 tab Ondansetron Odt [Zofran Odt] 4 mg PO Q8HR PRN #10 tab PRN Reason: Nausea Is patient prescribed a controlled substance at d/c from ED?: No Referrals: Ej Joy MD [Primary Care Provider] - 1-2 days Time of Disposition: 13:22
== END 2020-11-10 14:17 | disposition home or self-care (01) ==
LOC: EC 10:33
DX: N39.0 Urinary tract infection, site not specified (principal); N20.2 Calculus of kidney with calculus of ureter; I10 Essential (primary) hypertension; E78.5 Hyperlipidemia, unspecified; Z86.73 Personal history of transient ischemic attack (TIA), and cerebral infarction without residual deficits
CPT/HCPCS: 36415; 80053; 82150; 83605; 83690; 85025; 81001; 87086; 74176; 99284; 96374; 96375; 96361; J2405; J1885

== ENCOUNTER 2022-01-16 14:59 | Observation (INO) | payer MEDICARE ==
[2022-01-16] MEDS ORDERED: ONDANSETRON 4 MG/2 ML VIAL IVP STA ×2 (15:28→21:25)
[2022-01-16] MEDS ORDERED: SODIUM CHLORIDE 0.9% 500 ML 500 ML IV STA (15:34)
[2022-01-16] MEDS ORDERED: FAMOTIDINE 20 MG/2 ML VIAL IV STA (15:35)
--- NOTE | 2022-01-16 15:38 | ED ---
General Adult HPI - General Chief complaint: Nausea/Vomiting/Diarrhea Stated complaint: vomiting Time Seen by Provider: 01/16/22 15:23 Source: patient, family, RN notes reviewed Mode of arrival: ambulatory Limitations: no limitations - History of Present Illness Initial comments: Patient is a pleasant 71-year-old female presenting to the emergency Department with vomiting. Onset was a few hours ago. Patient had a single episode of diarrhea, which is not uncommon for her. Patient has vomited however multiple times since then, approximately 5 or 6. Patient has been drowsy. Patient states she feels fine overall however admits to feeling somewhat drowsy and still nauseous. No abdominal pain except for mild discomfort just prior to emesis. No fevers. Patient was feeling fine this morning. No known bad food. - Related Data Home Medications Medication Instructions Recorded Confirmed Latanoprost/Pf [Latanoprost 0.005% 1 drop BOTH EYES HS 09/29/19 01/16/22 Eye Drop] Timolol 0.5% Ophth Soln [Timoptic 1 drop BOTH EYES BID 09/29/19 01/16/22 0.5% Ophth Soln] Brimonidine Tartrate [Alphagan P 1 drops BOTH EYES BID 01/16/22 01/16/22 0.2% Ophth Soln] Allergies Allergy/AdvReac Type Severity Reaction Status Date / Time No Known Allergies Allergy Verified 01/16/22 16:37 Review of Systems ROS Statement: Those systems with pertinent positive or pertinent negative responses have been documented in the HPI. ROS Other: All systems not noted in ROS Statement are negative. Constitutional: Denies: fever Eyes: Denies: eye pain ENT: Denies: ear pain Respiratory: Denies: cough, dyspnea Cardiovascular: Denies: chest pain Endocrine: Reports: fatigue Gastrointestinal: Reports: as per HPI, nausea, vomiting Genitourinary: Denies: dysuria Musculoskeletal: Denies: back pain Skin: Denies: lesions Neurological: Denies: weakness Past Medical History Past Medical History: Cancer, CVA/TIA, Hyperlipidemia, Hypertension Additional Past Medical History / Comment(s): hearing loss History of Any Multi-Drug Resistant Organisms: CRE Date of last positivie culture/infection: 11/10/20 MDRO Source:: URINE Past Surgical History: Ear Surgery, Hysterectomy Past Psychological History: No Psychological Hx Reported Smoking Status: Never smoker Past Alcohol Use History: None Reported Past Drug Use History: None Reported - Past Family History Mother Family Medical History: Cancer Additional Family Medical History / Comment(s): lung ca General Exam Limitations: no limitations General appearance: alert, in no apparent distress Head exam: Present: normocephalic Eye exam: Present: normal appearance, PERRL, EOMI ENT exam: Present: normal oropharynx Neck exam: Present: normal inspection Respiratory exam: Present: normal lung sounds bilaterally Cardiovascular Exam: Present: regular rate, normal rhythm GI/Abdominal exam: Present: soft, normal bowel sounds. Absent: distended, tenderness, guarding, rebound, rigid, pulsatile mass Extremities exam: Present: normal inspection Neurological exam: Present: alert, oriented X3, CN II-XII intact. Absent: motor sensory deficit Psychiatric exam: Present: normal affect, normal mood Skin exam: Present: normal color Course Vital Signs 01/16/22 01/16/22 01/16/22 15:01 16:21 18:27 Pulse Rate 56 L 64 64 Respiratory 18 18 18 Rate Blood Pressure 137/75 151/86 163/94 O2 Sat by Pulse 100 98 97 Oximetry 01/16/22 01/16/22 19:31 21:40 Pulse Rate 71 84 Respiratory 20 18 Rate Blood Pressure 167/93 143/94 O2 Sat by Pulse 96 97 Oximetry EKG Findings - EKG Comments: EKG Findings:: Sinus bradycardia 56. AK 151. QRS 85. QT 4:30. QTC 423. Normal axis. Right ventricular conduction delay. No acute ST change. Medical Decision Making - Medical Decision Making Patient reevaluated and resting comfortably in bed. Patient did vomit again. Patient states she still not feeling well. A mueller updated on results and plan. Case discussed with Dr. Amin, who will admit covering Dr. Dove. - Lab Data Result diagrams: 01/16/22 15:39 01/16/22 15:39 Lab Results 01/16/22 01/16/22 01/16/22 Range/Units 15:39 15:39 15:39 WBC 11.8 H (3.8-10.6) k/uL RBC 4.96 (3.80-5.40) m/uL Hgb 14.9 (11.4-16.0) gm/dL Hct 46.0 (34.0-46.0) % MCV 92.6 (80.0-100.0) fL MCH 30.0 (25.0-35.0) pg MCHC 32.3 (31.0-37.0) g/dL RDW 12.1 (11.5-15.5) % Plt Count 299 (150-450) k/uL MPV 6.9 Neutrophils % 86 % Lymphocytes % 10 % Monocytes % 3 % Eosinophils % 1 % Basophils % 0 % Neutrophils # 10.1 H (1.3-7.7) k/uL Lymphocytes # 1.1 (1.0-4.8) k/uL Monocytes # 0.4 (0-1.0) k/uL Eosinophils # 0.1 (0-0.7) k/uL Basophils # 0.1 (0-0.2) k/uL PT (9.0-12.0) sec INR (<1.2) APTT (22.0-30.0) sec Sodium 137 (137-145) mmol/L Potassium 4.7 (3.5-5.1) mmol/L Chloride 103 (98-107) mmol/L Carbon Dioxide 26 (22-30) mmol/L Anion Gap 8 mmol/L BUN 17 (7-17) mg/dL Creatinine 1.06 H (0.52-1.04) mg/dL Est GFR (CKD-EPI)AfAm 61 (>60 ml/min/1.73 sqM) Est GFR (CKD-EPI)NonAf 53 (>60 ml/min/1.73 sqM) Glucose 182 H (74-99) mg/dL Calcium 9.5 (8.4-10.2) mg/dL Total Bilirubin 0.7 (0.2-1.3) mg/dL AST 25 (14-36) U/L ALT 12 (4-34) U/L Alkaline Phosphatase 90 (38-126) U/L Troponin I (0.000-0.034) ng/mL Total Protein 7.1 (6.3-8.2) g/dL Albumin 4.6 (3.5-5.0) g/dL Amylase 58 (30-110) U/L Lipase 97 (23-300) U/L Urine Color Light Yellow Urine Appearance Cloudy H (Clear) Urine pH 7.0 (5.0-8.0) Ur Specific [place] 1.010 (1.001-1.035) Urine Protein Trace H (Negative) Urine Glucose (UA) 1+ H (Negative) Urine Ketones Negative (Negative) Urine Blood Negative (Negative) Urine Nitrite Negative (Negative) Urine Bilirubin Negative (Negative) Urine Urobilinogen <2.0 (<2.0) mg/dL Ur Leukocyte Esterase Small H (Negative) Urine RBC <1 (0-5) /hpf Urine WBC 1 (0-5) /hpf Ur Squamous Epith Cells 2 (0-4) /hpf Urine Bacteria Rare H (None) /hpf Hyaline Casts 3 H (0-2) /lpf Urine Mucus Rare H (None) /hpf 01/16/22 01/16/22 Range/Units 15:39 15:39 WBC (3.8-10.6) k/uL RBC (3.80-5.40) m/uL Hgb (11.4-16.0) gm/dL Hct (34.0-46.0) % MCV (80.0-100.0) fL MCH (25.0-35.0) pg MCHC (31.0-37.0) g/dL RDW (11.5-15.5) % Plt Count (150-450) k/uL MPV Neutrophils % % Lymphocytes % % Monocytes % % Eosinophils % % Basophils % % Neutrophils # (1.3-7.7) k/uL Lymphocytes # (1.0-4.8) k/uL Monocytes # (0-1.0) k/uL Eosinophils # (0-0.7) k/uL Basophils # (0-0.2) k/uL PT 10.3 (9.0-12.0) sec INR 0.9 (<1.2) APTT 21.5 L (22.0-30.0) sec Sodium (137-145) mmol/L Potassium (3.5-5.1) mmol/L Chloride (98-107) mmol/L Carbon Dioxide (22-30) mmol/L Anion Gap mmol/L BUN (7-17) mg/dL Creatinine (0.52-1.04) mg/dL Est GFR (CKD-EPI)AfAm (>60 ml/min/1.73 sqM) Est GFR (CKD-EPI)NonAf (>60 ml/min/1.73 sqM) Glucose (74-99) mg/dL Calcium (8.4-10.2) mg/dL Total Bilirubin (0.2-1.3) mg/dL AST (14-36) U/L ALT (4-34) U/L Alkaline Phosphatase (38-126) U/L Troponin I <0.012 (0.000-0.034) ng/mL Total Protein (6.3-8.2) g/dL Albumin (3.5-5.0) g/dL Amylase (30-110) U/L Lipase (23-300) U/L Urine Color Urine Appearance (Clear) Urine pH (5.0-8.0) Ur Specific [place] (1.001-1.035) Urine Protein (Negative) Urine Glucose (UA) (Negative) Urine Ketones (Negative) Urine Blood (Negative) Urine Nitrite (Negative) Urine Bilirubin (Negative) Urine Urobilinogen (<2.0) mg/dL Ur Leukocyte Esterase (Negative) Urine RBC (0-5) /hpf Urine WBC (0-5) /hpf Ur Squamous Epith Cells (0-4) /hpf Urine Bacteria (None) /hpf Hyaline Casts (0-2) /lpf Urine Mucus (None) /hpf - Radiology Data Radiology results: report reviewed (Computed tomography scan abdomen pelvis shows no acute abnormality.), image reviewed Disposition Clinical Impression: Vomiting Disposition: ADMITTED IP TO THIS HOSP Is patient prescribed a controlled substance at d/c from ED?: No Time of Disposition: 22:10
[2022-01-16 15:47] LABS: Basophils # (A) 0.1 k/uL (0-0.2); Basophils % (A) 0 %; Eosinophils # (A) 0.1 k/uL (0-0.7); Eosinophils % (A) 1 %; HGB 14.9 gm/dL (11.4-16.0); Lymphocytes # (A) 1.1 k/uL (1.0-4.8); Lymphocytes % (A) 10 %; MCHC 32.3 g/dL (31.0-37.0); MCV 92.6 fL (80.0-100.0); Mean Platelet Volume 6.9; Monocytes # (A) 0.4 k/uL (0-1.0); Monocytes % (A) 3 %; Neutrophils # (A) 10.1 k/uL (1.3-7.7); Neutrophils % (A) 86 %; Platelet Count 299 k/uL (150-450); RBC 4.96 m/uL (3.80-5.40); RDW 12.1 % (11.5-15.5); WBC 11.8 k/uL (3.8-10.6)
[2022-01-16 16:02] LABS: Albumin 4.6 g/dL (3.5-5.0); Calcium 9.5 mg/dL (8.4-10.2); Potassium 4.7 mmol/L (3.5-5.1); Total Bilirubin 0.7 mg/dL (0.2-1.3); Total Protein 7.1 g/dL (6.3-8.2)
[2022-01-16 16:46] LABS: INR 0.9 (<1.2); Prothrombin Time 10.3 sec (9.0-12.0)
[2022-01-16 16:49] LABS: Partial Thromboplastin Time 21.5 sec (22.0-30.0)
[2022-01-16 18:23] LABS: Appearance,Urine Cloudy (Clear); Bacteria,Urine Rare /hpf; Bilirubin,Urine Negative (Negative); Blood,Urine Negative (Negative); Color,Urine Light Yellow; Glucose,Urine (UA) 1+ (Negative); Hyaline Casts,Urine 3 /lpf (0-2); Ketones,Urine Negative (Negative); Leukocyte Esterase,Urine Small (Negative); Mucus,Urine Rare /hpf; Nitrite,Urine Negative (Negative); Protein,Urine Trace (Negative); RBC,Urine <1 /hpf (0-5); Squamous Epithelial Cell,Urine 2 /hpf (0-4); Urobilinogen,Urine <2.0 mg/dL (<2.0); WBC,Urine 1 /hpf (0-5)
--- NOTE | 2022-01-16 21:09 | CT ---
EXAMINATION TYPE: CT abdomen pelvis w con DATE OF EXAM: 01/16/2022 COMPARISON: 11/10/2020 HISTORY: abdominal pain, vomiting, diarrhea CT DLP: 902.1 mGycm Automated exposure control for dose reduction was used. CONTRAST: Performed with IV Contrast, patient injected with 70 mL of Isovue 300. Images obtained from the diaphragm to the floor the pelvis with IV contrast. There is some interstitial infiltrate and atelectasis at the lung bases. Heart appears intact. No per icardial effusion. No pleural effusion. Liver is intact. Spleen is intact. Stomach is intact. There is no pancreatic mass. There is small hia christian hernia. It is not clear if the gallbladder is present. There are clips in the right upper quadran t. There is a 3 x 2 cm rounded fluid density near the surgical clips in the right upper quadrant that could be gallbladder or a benign cyst. There is no adrenal mass. Kidneys have normal size and contour. There is normal contrast opacificatio n of the kidneys. There is 2 mm calculus lower pole right kidney. No hydronephrosis. Delayed images s how normal renal excretion. There is no retroperitoneal adenopathy. Bladder distends smoothly. There is no inguinal hernia. No free fluid in the pelvis. There are multiple sigmoid diverticula. No divert iculitis. The lumbar vertebrae have normal alignment. Disc spaces are fairly normal. No compression fracture. T he bony pelvis appears intact. The hip joints are intact. Sacroiliac joints are intact. Appendix not seen. No sign of thickened appendix. IMPRESSION: Patchy atelectasis at the lung bases without much change. Nonobstructing right renal calculus. No acu te abnormality within the abdomen and pelvis.
[2022-01-16] MEDS ORDERED: MORPHINE SULFATE 2 MG/ML SYRINGE IVP STA (21:25)
--- NOTE | 2022-01-16 21:38 | XR ---
EXAMINATION TYPE: XR KUB DATE OF EXAM: 01/16/2022 COMPARISON: 09/29/2019 HISTORY: Abdominal pain TECHNIQUE: 2 view FINDINGS: 2 view supine were obtained and show no sign of intestinal obstruction or pneumoperitoneum. Fecal pattern is normal. There is no evidence of a mass. Lung bases are clear. IMPRESSION: Nonacute abdomen. No adverse change.
--- NOTE | 2022-01-16 21:39 | XR ---
EXAMINATION TYPE: XR chest 1V portable DATE OF EXAM: 01/16/2022 COMPARISON: 09/29/2019 HISTORY: 2 views TECHNIQUE: FINDINGS: Heart is normal. Lungs are clear of infiltrate. No heart failure. There are no hilar masses . There are chest leads. Bony thorax is intact. IMPRESSION: No active cardiopulmonary disease. Normal heart. No change.
[2022-01-16] MEDS ORDERED: ONDANSETRON 4 MG/2 ML VIAL IVP PRN (22:10)
[2022-01-16] MEDS ORDERED: NALOXONE 0.4 MG/ML 1 ML VIAL IV PRN (22:10)
[2022-01-16] MEDS ORDERED: SODIUM CHLORIDE 0.9% 1,000 ML IV SCH (22:15)
[2022-01-16] MEDS ORDERED: LATANOPROST 0.005% OPHTH DROPS 2.5 ML BTL BOTH EYES SCH (23:30)
[2022-01-17 07:47] VITALS: RESP 18
[2022-01-17] MEDS ORDERED: BRIMONIDINE TARTRATE 0.2% DROPS 5 ML BTL BOTH EYES SCH (09:00)
[2022-01-17] MEDS ORDERED: TIMOLOL 0.5% OPHTH DROPS 5 ML BTL BOTH EYES SCH (09:00)
[2022-01-17] MEDS ORDERED: PANTOPRAZOLE 40 MG/10 ML VIAL IV SCH (09:00)
--- NOTE | 2022-01-17 13:45 | P.HPIM ---
History of Present Illness H&P Date: 01/17/22 HISTORY AND PHYSICAL AND DISCHARGE SUMMARY: HISTORY OF PRESENT ILLNESS This is a 71-year-old female patient of Dr. aBez with past medical history of deafness status post 2 cochlear implants, CVA with vision loss bilaterally 2.5 to 3 years ago, glaucoma, uterine cancer status post hysterectomy. Patient presented to the emergency center due to vomiting going on for a couple hours and did not seem to stop. She denies significant diarrhea but had one episode when she started to the gas station had a little bit of diarrhea. She denies abdominal pain. Heart rate 56, blood pressure 137/75, pulse ox 100%. EKG sinus bradycardia with no acute changes. WBC 11.8, hemoglobin 14.9, platelet count 299. Sodium 137, potassium 4.7, chloride 103, CO2 26, BUN 17 and creatinine 1.06. Blood sugar 182. Urinalysis with small amount of leukoesterase, bacteria rare. INR 0.9. Troponin negative. Patient received 2 doses of Zofran, 500 ML's of normal saline, with one dose of morphine and Pepcid. She states she is feeling well now. No further nausea or vomiting. Patient started on diet and if she tolerates, will discharge home later today. Patient did well eating a regular diet, sandwich, tolerated with no nausea or vomiting. Patient will be discharged today in stable condition. REVIEW OF SYSTEMS Constitutional: No fever, no chills, no night sweats. No weight change. No weakness, fatigue or lethargy. No daytime sleepiness. EENT: No headache. No blurred vision or double vision, no loss of vision. No loss of Hearing, no ringing in the ears, no dizziness. No nasal drainage or congestion. No epistaxis. No sore throat. Lungs: No shortness of breath, cough, no sputum production. No wheezing. Cardiovascular: No chest pain, no lower extremity edema. No palpitations. No paroxysmal nocturnal dyspnea. No orthopnea. No lightheadedness or dizziness. No syncopal episodes. Abdominal: No abdominal pain. No nausea, vomiting. No diarrhea. No constipation. No bloody or tarry stools. No loss of appetite. Genitourinary: No dysuria, increased frequency, urgency. No urinary retention. Musculoskeletal: No myalgias. No muscle weakness, no gait dysfunction, no frequent falls. No back pain. No neck pain. Integumentary: No wounds, no lesions. No rash or pruritus. No unusual bruising. No change in hair or nails. Neurologic: No aphasia. No facial droop. No change in mentation. No head injury. No headache. No paralysis. No paresthesia. Psychiatric: No depression. No anxiety. No mood swings. Endocrine: No abnormal blood sugars. No weight change. No excessive sweating or thirst. No cold intolerance. SOCIAL HISTORY Patient denies any history of smoking, no alcohol abuse, no illicit drug use, no marijuana use. Patient is a and lives alone but she has a friend named Danny that helps her often and checks on her. FAMILY HISTORY Father is and patient did not know him. Mother is at age 70 with history of pneumonia and lung cancer. Patient is an only child. She has 2 stepchildren.. PHYSICAL EXAMINATION Gen: This is a 71-year-old female. She is resting on ER stretcher and appears to be comfortable and in no acute distress. HEENT: Head is atraumatic, normocephalic. Pupils equal, round. Sclerae is anicteric. NECK: Supple. No JVD. No lymphadenopathy. No thyromegaly. LUNGS: Clear to auscultation. No wheezes or rhonchi. No intercostal retractions. HEART: Regular rate and rhythm. No murmur. ABDOMEN: Soft. Bowel sounds are present. No masses. No tenderness. EXTREMITIES: No pedal edema. No calf tenderness. NEUROLOGICAL: Patient is awake, alert and oriented x3. Cranial nerves 2 through 12 are grossly intact. ASSESSMENT AND PLAN 1. Acute gastroenteritis with intractable vomiting, improved. 2. History of deafness status post 2 cochlear implants, stable. 3. History of CVA with vision loss bilaterally. 4. Glaucoma. Continue eyedrops. 5. History of uterine cancer status post hysterectomy. Patient is observation status DISCHARGE PLAN Return home. Impression and plan of care have been directed as dictated by the signing physician. Ly Upton nurse practitioner acting as scribe for signing physician. Past Medical History Past Medical History: Cancer, CVA/TIA, Hyperlipidemia, Hypertension Additional Past Medical History / Comment(s): hearing loss History of Any Multi-Drug Resistant Organisms: CRE Date of last positivie culture/infection: 11/10/20 MDRO Source:: URINE Past Surgical History: Ear Surgery, Hysterectomy Past Psychological History: No Psychological Hx Reported Smoking Status: Never smoker Past Alcohol Use History: None Reported Past Drug Use History: None Reported - Past Family History Mother Family Medical History: Cancer Additional Family Medical History / Comment(s): lung ca Medications and Allergies Home Medications Medication Instructions Recorded Confirmed Type Latanoprost/Pf [Latanoprost 0.005% 1 drop BOTH EYES HS 09/29/19 01/16/22 History Eye Drop] Timolol 0.5% Ophth Soln [Timoptic 1 drop BOTH EYES BID 09/29/19 01/16/22 History 0.5% Ophth Soln] Brimonidine Tartrate [Alphagan P 1 drops BOTH EYES BID 01/16/22 01/16/22 History 0.2% Ophth Soln] Ondansetron [Zofran] 4 mg PO Q8HR PRN #30 tab 01/17/22 Rx Pantoprazole [Protonix] 40 mg PO DAILY #30 tab 01/17/22 Rx Allergies Allergy/AdvReac Type Severity Reaction Status Date / Time No Known Allergies Allergy Verified 01/16/22 16:37 Physical Exam Vitals: Vital Signs Pulse Resp BP Pulse Ox 01/17/22 07:46 84 18 139/71 98 01/17/22 06:24 77 12 148/82 96 01/17/22 05:47 86 13 133/70 98 01/17/22 04:26 67 17 100/86 95 01/17/22 01:37 75 16 148/87 95 01/17/22 00:20 71 13 156/84 01/16/22 21:40 84 18 143/94 97 01/16/22 19:31 71 20 167/93 96 01/16/22 18:27 64 18 163/94 97 01/16/22 16:21 64 18 151/86 98 01/16/22 15:01 56 L 18 137/75 100 Intake and Output 01/16/22 01/17/22 01/17/22 22:59 06:59 14:59 Other: Weight 68.039 kg Results CBC & Chem 7: 01/16/22 15:39 01/16/22 15:39 Labs: Abnormal Lab Results - Last 24 Hours (Table) 01/16/22 01/16/22 01/16/22 Range/Units 15:39 15:39 15:39 WBC 11.8 H (3.8-10.6) k/uL Neutrophils # 10.1 H (1.3-7.7) k/uL APTT (22.0-30.0) sec Creatinine 1.06 H (0.52-1.04) mg/dL Glucose 182 H (74-99) mg/dL Urine Appearance Cloudy H (Clear) Urine Protein Trace H (Negative) Urine Glucose (UA) 1+ H (Negative) Ur Leukocyte Esterase Small H (Negative) Urine Bacteria Rare H (None) /hpf Hyaline Casts 3 H (0-2) /lpf Urine Mucus Rare H (None) /hpf 01/16/22 Range/Units 15:39 WBC (3.8-10.6) k/uL Neutrophils # (1.3-7.7) k/uL APTT 21.5 L (22.0-30.0) sec Creatinine (0.52-1.04) mg/dL Glucose (74-99) mg/dL Urine Appearance (Clear) Urine Protein (Negative) Urine Glucose (UA) (Negative) Ur Leukocyte Esterase (Negative) Urine Bacteria (None) /hpf Hyaline Casts (0-2) /lpf Urine Mucus (None) /hpf
[2022-01-17 16:05] VITALS: BP 123/78; PULSE 78; TEMP 98.4
== END 2022-01-17 16:05 | disposition home or self-care (01) ==
LOC: EC 14:59 → 6NMEDSUR 22:10
PROVIDERS: ADMIT Internal Medicine Geriatric Medicine; ATTEND Internal Medicine Geriatric Medicine
DX: K52.9 Noninfective gastroenteritis and colitis, unspecified (principal); I10 Essential (primary) hypertension; E78.5 Hyperlipidemia, unspecified; H40.9 Unspecified glaucoma; R00.1 Bradycardia, unspecified; H54.3 Unqualified visual loss, both eyes; I69.398 Other sequelae of cerebral infarction; J98.11 Atelectasis; H91.90 Unspecified hearing loss, unspecified ear; N20.0 Calculus of kidney; Z79.899 Other long term (current) drug therapy; Z85.42 Personal history of malignant neoplasm of other parts of uterus; Z96.21 Cochlear implant status; Z16.24 Resistance to multiple antibiotics; Z90.710 Acquired absence of both cervix and uterus; Z98.890 Other specified postprocedural states; Z82.5 Family history of asthma and other chronic lower respiratory diseases; Z80.1 Family history of malignant neoplasm of trachea, bronchus and lung
CPT/HCPCS: 96376 ×2; 96361; 96374; 96375 ×2; 99285; 36415; 93005; 80053; 82150; 83690; 84484; 85025; 85610; 85730; 81001; 71045; 74018; 74177; G0378 ×2; J2405 ×2; J2270; C9113; Q9967

== ENCOUNTER → 2022-04-09 | Outpatient (CLI) | payer MEDICARE ==
--- NOTE | 2022-04-10 09:10 | US ---
EXAMINATION TYPE: US arterial LE single level DATE OF EXAM: 04/09/2022 2:34 PM CLINICAL HISTORY: M79.604 pain right leg. Pain in right leg. Hx stroke in 2019. Attempted calf pressu res, unable to obtain due to too much patient movement. Doppler Waveforms: Right: Monophasic Left: Predominantly biphasic Pulse Volume Recording: Flattened Pressure Gradients: Ankle-Brachial Indices: Right: 0.48 Left: 1.07 Toe Brachial Indices: Right: Unable to show clear toe waveform. Left: Possible waveform shown, not seen with certainty. IMPRESSION: Markedly suboptimal study. Diminished right-sided TOMÁS consistent with severe peripheral arterial disease in the right lower extremity. Further workup and follow-up advised.
== END | disposition home or self-care (01) ==
LOC: RADUSWWP 13:28
PROVIDERS: ATTEND Family Medicine
DX: M79.604 Pain in right leg (principal)
CPT/HCPCS: 93922